=== PATIENT | female | born 1940 | race Caucasian/White ===

== ENCOUNTER 2018-11-23 20:12 | Emergency (ER) | payer OTHER, MEDICARE ==
--- NOTE | 2018-11-23 21:26 | RAD REPORT ---
EXAM DESCRIPTION: CT - CTHCSPWOC - 11/23/2018 9:16 pm CLINICAL HISTORY: Fall, head and neck injury COMPARISON: None. TECHNIQUE: Axial 5 mm thick images of the head were obtained. Axial 2 mm thick images of the cervic al spine were obtained with sagittal and coronal reconstruction images generated and reviewed. All CT scans are performed using dose optimization technique as appropriate and may include automated exposure control or mA/KV adjustment according to patient size. FINDINGS: No intracranial hemorrhage, mass, edema or acute intracranial finding. No suspicion for ac florence infarction. Moderate atrophy and chronic ischemic changes are present. Mastoid air cells and para nasal sinuses are clear. No globe or orbit abnormality seen. Cervical bodies are normal in height. Minimal subluxation of C3 on C4 noted. All disc levels except C 2-3 are narrowed. Prominent endplate spurs are seen at multiple levels. Uncovertebral joint hypertrop hy present at multiple levels. Significant foraminal encroachment on the right at C3-4 with moderate foraminal stenosis at C4-5 and on the left at C5-6. Left C6-7 foraminal encroachment as well. No frac ture or acute bony abnormality. Central canal detail is inherently limited. Prominent degenerative ch anges are present at the dens anterior arch C1 level. No paraspinal mass or hematoma. IMPRESSION: Atrophy and chronic ischemic change with no acute intracranial finding. Chronic ischemic changes can mask nonhemorrhagic acute infarction. MR brain followup can be obtained if there is ongoing concern for acute ischemia. Prominent cervical spine degenerative change without acute finding.
[2018-11-23 21:38] LABS: Potassium 4.1 mmol/L (3.5-5.1)
[2018-11-23 21:43] LABS: Absolute Lymphocytes (CBC) 0.7 K/uL (0.7-4.9); Absolute Monocytes 0.8 K/uL (0.1-1.3); Absolute Neutrophil 8.8 K/uL (1.8-8.0); Basophils % 0.4 % (0-1.3); Hematocrit 37.1 % (36.0-45.0); Lymphocytes % 6.5 % (15.3-44.8); Monocytes % 7.7 % (3.3-12.3); RBC Red Blood Cell Count 3.93 M/uL (3.86-4.86)
--- NOTE | 2018-11-23 22:10 | EDPHYS ---
Physician Documentation [facility] Name: Coreen De Jesus Age: 78 yrs Sex: Female : 1940 Arrival Date: 11/23/2018 Time: 20:20 Bed 18 Private MD: ED Physician Christopher Price HPI: 11/23 20:37 This 78 yrs old Female presents to ER via EMS with complaints of Fall. ps1 20:37 Patient was found down by staff at alf. Unknown LOC, unknown fall, patient has ps1 severe dementia and only attests to right arm pain. Not providing history. No other trauma identified. Pain rated as moderate with palpation.. Historical: - Allergies: 20:24 NKDA; cc3 - Home Meds: 20:24 citalopram 40 mg tab 1 tab once daily [Active]; hydrochlorothiazide 12.5 mg Oral cap 1 cc3 cap once daily [Active]; Namzaric 28-10 mg oral CSpX 1 cap once daily [Active]; risperidone 0.25 mg oral tab 1 tabs 3x per day [Active]; Arthritis Pain Relief (acetam) 650 mg oral TbER prn [Active]; tramadol 50 mg Oral tab 3x a day PRN [Active]; - PMHx: 20:24 Dementia; Alzheimers; cc3 20:24 Depression; Anxiety; osteoarthritis; cc3 - Immunization history:: Adult Immunizations unknown. - Social history:: Smoking status: unknown. - Ebola Screening: : No symptoms or risks identified at this time. ROS: 20:37 Unable to obtain ROS due to baseline dementia. ps1 Exam: 20:37 Constitutional: This is a well developed, well nourished patient who is awake, alert, ps1 and in no acute distress. Head/Face: Normocephalic, atraumatic. Chest/axilla: Normal chest wall appearance and motion. Nontender with no deformity. No lesions are appreciated. Cardiovascular: Regular rate and rhythm. No gallops, murmurs, or rubs. Normal PMI, no JVD. No pulse deficits. Respiratory: Lungs have equal breath sounds bilaterally, clear to auscultation and percussion. No rales, rhonchi or wheezes noted. No increased work of breathing, no retractions or nasal flaring. Abdomen/GI: Soft, non-tender, with normal bowel sounds. No distension or tympany. No guarding or rebound. No evidence of tenderness throughout. 20:37 Musculoskeletal/extremity: Extremities: grossly normal except: noted in the right arm: pain. 20:37 Neuro: Orientation: Not oriented to person, place, situation. Vital Signs: 20:24 BP 167 / 94; Pulse 86; Resp 20 S; Temp 98.6(O); Pulse Ox 90% on R/A; cc3 21:26 BP 159 / 82; Pulse 93; Resp 16 S; Pulse Ox 93% on 2 lpm NC; jd3 22:13 BP 159 / 82; Pulse 85; Resp 17 S; Pulse Ox 92% on 2 lpm NC; jd3 23:47 BP 159 / 82; Pulse 83; Resp 17 S; Pulse Ox 93% on 2 lpm NC; jd3 11/24 00:30 BP 138 / 75; Pulse 80; Resp 17 S; Pulse Ox 95% on 2 lpm NC; jd3 01:42 BP 126 / 73; Pulse 77; Resp 16 S; Pulse Ox 95% on 2 lpm NC; jd3 02:40 BP 115 / 73; Pulse 72; Resp 16 S; Pulse Ox 96% on 2 lpm NC; jd3 03:47 BP 130 / 72; Pulse 72; Resp 18 S; Pulse Ox 95% on 2 lpm NC; jd3 04:28 BP 127 / 87; Pulse 71; Resp 17 S; Pulse Ox 95% on 2 lpm NC; jd3 MDM: 11/23 21:04 Patient medically screened. ps1 22:43 Data reviewed: vital signs, nurses notes, lab test result(s), radiologic studies, and ps1 as a result, I will discharge patient. 11/23 20:51 Order name: Basic Metabolic Panel ps1 11/23 20:51 Order name: CBC with Diff ps1 11/23 20:51 Order name: Creatinine for Radiology ps1 11/23 20:51 Order name: Type And Screen ps1 11/23 21:38 Order name: Basic Metabolic Panel; Complete Time: 21:45 EDMS 11/23 21:39 Order name: Creatinine (Radiology Only); Complete Time: 21:45 EDMS 11/23 20:51 Order name: XRAY Chest (1 view) ps1 11/23 20:51 Order name: CT Head C Spine ps1 11/23 20:51 Order name: Labs collected and sent; Complete Time: 21:14 ps1 11/23 20:51 Order name: Humerus Right XRAY ps1 11/23 21:27 Order name: CT; Complete Time: 21:45 EDMS 11/23 21:49 Order name: CBC with Automated Diff; Complete Time: 22:05 EDMS 11/23 22:04 Order name: Type and Screen; Complete Time: 22:05 EDMS Administered Medications: No medications were administered Disposition: 22:43 Chart complete. ps1 Disposition: 11/23/18 22:09 Discharged to Home. Impression: Fall, Right arm pain. - Condition is Stable. - Discharge Instructions: Fall Prevention in the Home. - SBAR form, Medication Reconciliation Form, Thank You Letter, Antibiotic Education, Prescription Opioid Use form. - Follow up: Private Physician; When: As needed; Reason: Recheck today's complaints, Continuance of care, Re-evaluation by your physician. Follow up: Emergency Department; When: As needed; Reason: Worsening of condition. - Problem is new. - Symptoms have improved. Signatures: Dispatcher [employer] Pipo Downing RN RN jd3 Christopher Price MD MD ps1 Laine Freeman cc3 Corrections: (The following items were deleted from the chart) 11/24 05:10 11/23 22:09 11/23/2018 22:09 Discharged to Home. Impression: Fall; Right arm pain. jd3 Condition is Stable. Forms are Medication Reconciliation Form, Thank You Letter, Antibiotic Education, Prescription Opioid Use. Follow up: Private Physician; When: As needed; Reason: Recheck today's complaints, Continuance of care, Re-evaluation by your physician. Follow up: Emergency Department; When: As needed; Reason: Worsening of condition. Problem is new. Symptoms have improved. ps1
--- NOTE | 2018-11-23 22:10 | ER ---
Nurse's Notes [facility] Name: Coreen De Jesus Age: 78 yrs Sex: Female : 1940 Arrival Date: 11/23/2018 Time: 20:20 Bed 18 Private MD: Diagnosis: Fall;Right arm pain Presentation: 11/23 20:24 Presenting complaint: EMS states: Right arm pain sustained from fall. The patient is in cc3 [facility] and was found by the staff there at around 1900H tonight on the floor, not knowing when she had a fall, not knowing how did it happen or what the patient was doing prior to the fall and unknown if the patient had loss of consciousness or not, patient has history of dementia as endorsed. Transition of care: [facility]. Onset of symptoms was November 23, 2018. Risk Assessment: Do you want to hurt yourself or someone else? Patient reports no desire to harm self or others. Initial Sepsis Screen: Does the patient meet any 2 criteria? No. Patient's initial sepsis screen is negative. Does the patient have a suspected source of infection? No. Patient's initial sepsis screen is negative. Care prior to arrival: None. 20:24 Method Of Arrival: EMS: [facility] cc3 20:24 Acuity: IAN 3 cc3 Triage Assessment: 20:24 General: Appears in no apparent distress. uncomfortable, Behavior is calm, cooperative, cc3 appropriate for age. Pain: Complains of pain in right shoulder, right arm. EENT: No signs and/or symptoms were reported regarding the EENT system. Ear canal clear on bilateral Nares are clear. Neuro: Level of Consciousness is awake, alert, obeys commands, Oriented to none. Cardiovascular: Denies chest pain. Cardiovascular: Patient's skin is warm and dry. Respiratory: Airway is patent Respiratory effort is even, unlabored, Respiratory pattern is regular, symmetrical. GI: Abdomen is round non-distended. : No signs and/or symptoms were reported regarding the genitourinary system. Derm: Bruising that is dark purple, on left arm. Musculoskeletal: Circulation, motion, and sensation intact. Range of motion: limited in all extremities. Historical: - Allergies: 20:24 NKDA; cc3 - Home Meds: 20:24 citalopram 40 mg tab 1 tab once daily [Active]; hydrochlorothiazide 12.5 mg Oral cap 1 cc3 cap once daily [Active]; Namzaric 28-10 mg oral CSpX 1 cap once daily [Active]; risperidone 0.25 mg oral tab 1 tabs 3x per day [Active]; Arthritis Pain Relief (acetam) 650 mg oral TbER prn [Active]; tramadol 50 mg Oral tab 3x a day PRN [Active]; - PMHx: 20:24 Dementia; Alzheimers; cc3 20:24 Depression; Anxiety; osteoarthritis; cc3 - Immunization history:: Adult Immunizations unknown. - Social history:: Smoking status: unknown. - Ebola Screening: : No symptoms or risks identified at this time. Screenin:27 Abuse screen: Denies threats or abuse. Nutritional screening: No deficits noted. jd3 Tuberculosis screening: No symptoms or risk factors identified. Fall Risk Fall in past 12 months (25 points). Ambulatory Aid- Crutches/Cane/Walker (15 pts). Gait- Weak (10 pts.). Mental Status- Overestimates/Forgets Limitations (15 pts.). Total Pulido Fall Scale indicates High Risk Score (45 or more points). Fall prevention measures have been instituted. Side Rails Up X 2 Placed Close to Nursing Station Frequent Obs/Assessments Occuring. Assessment: 20:25 General: Appears uncomfortable, Behavior is calm, quiet. Pain: Complains of pain in jd3 right shoulder Quality of pain is described as aching, tender. Neuro: Level of Consciousness is awake, confused, Oriented to none. Cardiovascular: Capillary refill < 3 seconds Patient's skin is warm and dry. Respiratory: Airway is patent Respiratory effort is even, unlabored, Respiratory pattern is regular, symmetrical. GI: No signs and/or symptoms were reported involving the gastrointestinal system. : No signs and/or symptoms were reported regarding the genitourinary system. EENT: No signs and/or symptoms were reported regarding the EENT system. Derm: Skin is intact, Skin is dry, Skin is normal, Skin temperature is warm. Musculoskeletal: Range of motion: limited in right shoulder Reports pain in right shoulder. 21:28 Reassessment: Patient appears in no apparent distress at this time. No changes from jd3 previously documented assessment. Patient and/or family updated on plan of care and expected duration. Pain level reassessed. 22:12 Reassessment: Patient appears in no apparent distress at this time. No changes from jd3 previously documented assessment. Patient and/or family updated on plan of care and expected duration. Pain level reassessed. 22:26 Reassessment: Patient appears in no apparent distress at this time. Patient and/or jd3 family updated on plan of care and expected duration. Pain level reassessed. [facility] reported that facility will arrange transfer. 23:47 Reassessment: Patient appears in no apparent distress at this time. No changes from jd3 previously documented assessment. Patient and/or family updated on plan of care and expected duration. Pain level reassessed. awaiting transportation. 11/24 00:45 Reassessment: Patient appears in no apparent distress at this time. No changes from jd3 previously documented assessment. Patient and/or family updated on plan of care and expected duration. Pain level reassessed. 01:05 Reassessment: Patient appears in no apparent distress at this time. No changes from jd3 previously documented assessment. Patient and/or family updated on plan of care and expected duration. Pain level reassessed. [facility] called to insure transfer is on the way, no update, was told facility would call back. 01:43 Reassessment: Patient appears in no apparent distress at this time. No changes from jd3 previously documented assessment. Patient and/or family updated on plan of care and expected duration. Pain level reassessed. 02:40 Reassessment: Patient appears in no apparent distress at this time. No changes from jd3 previously documented assessment. Patient and/or family updated on plan of care and expected duration. Pain level reassessed. 03:40 Reassessment: Patient appears in no apparent distress at this time. No changes from jd3 previously documented assessment. Patient and/or family updated on plan of care and expected duration. Pain level reassessed. no response from [facility], charge nurse notified. 04:04 Reassessment: [facility] called for wheelchair van for pt transpiration. [facility] reported jd3 they will be available at 0630. 04:28 Reassessment: Patient appears in no apparent distress at this time. No changes from jd3 previously documented assessment. Patient and/or family updated on plan of care and expected duration. Pain level reassessed. 05:10 Reassessment: Patient appears in no apparent distress at this time. Patient and/or jd3 family updated on plan of care and expected duration. Pain level reassessed. pt son arrived to pick pt up. Vital Signs: 11/23 20:24 BP 167 / 94; Pulse 86; Resp 20 S; Temp 98.6(O); Pulse Ox 90% on R/A; cc3 21:26 BP 159 / 82; Pulse 93; Resp 16 S; Pulse Ox 93% on 2 lpm NC; jd3 22:13 BP 159 / 82; Pulse 85; Resp 17 S; Pulse Ox 92% on 2 lpm NC; jd3 23:47 BP 159 / 82; Pulse 83; Resp 17 S; Pulse Ox 93% on 2 lpm NC; jd3 11/24 00:30 BP 138 / 75; Pulse 80; Resp 17 S; Pulse Ox 95% on 2 lpm NC; jd3 01:42 BP 126 / 73; Pulse 77; Resp 16 S; Pulse Ox 95% on 2 lpm NC; jd3 02:40 BP 115 / 73; Pulse 72; Resp 16 S; Pulse Ox 96% on 2 lpm NC; jd3 03:47 BP 130 / 72; Pulse 72; Resp 18 S; Pulse Ox 95% on 2 lpm NC; jd3 04:28 BP 127 / 87; Pulse 71; Resp 17 S; Pulse Ox 95% on 2 lpm NC; jd3 ED Course: 11/23 20:20 Patient arrived in ED. ds1 20:24 Pipo Darby, RN is Primary Nurse. jd3 20:28 Patient has correct armband on for positive identification. Bed in low position. Call jd3 light in reach. Side rails up X2. 20:30 Triage completed. cc3 20:33 Christopher Price MD is Attending Physician. ps1 21:[address] via stretcher. kw1 21:10 Inserted saline lock: 20 gauge in left antecubital area, using aseptic technique. Blood jd3 collected. 21:14 CT completed. Patient moved back from NM. bq 21:15 Arm band placed on. jd3 11/24 05:07 No provider procedures requiring assistance completed. IV discontinued, intact, jd3 bleeding controlled, No redness/swelling at site. Pressure dressing applied. Administered Medications: No medications were administered Outcome: 11/23 22:09 Discharge ordered by . ps1 11/24 05:08 Discharged to [facility]. Report called to [facility] pt's son arrived for discharge jd3 of pt. Condition: stable Discharge instructions given to family, Instructed on discharge instructions, Demonstrated understanding of instructions. 05:10 Patient left the ED. jd3 Signatures: Claudette Warner, Elvi ds1 Pipo Darby, BETY RN jd3 Christopher Price MD MD ps1 Porsche Díaz kw1 Laine Freeman cc3 Corrections: (The following items were deleted from the chart) 11/23 22:12 21:28 Reassessment: Patient appears in no apparent distress at this time. No changes jd3 from previously documented assessment. Patient and/or family updated on plan of care and expected duration. Pain level reassessed. Patient is alert, oriented x 3, equal unlabored respirations, skin warm/dry/pink. jd3 11/24 01:43 01:05 Reassessment: Patient appears in no apparent distress at this time. No changes jd3 from previously documented assessment. Patient and/or family updated on plan of care and expected duration. Pain level reassessed. [facility] called to insure transfer is on the way, no update, was told facility would call back. jd3 43 01:43 Reassessment: Patient appears in no apparent distress at this time. No changes jd3 from previously documented assessment. Patient and/or family updated on plan of care and expected duration. Pain level reassessed[facility] way, no update, was told facility would call back. jd3
--- NOTE | 2018-11-24 08:04 | RAD REPORT ---
EXAM DESCRIPTION: RAD - Humerus Right - 11/23/2018 9:51 pm CLINICAL HISTORY: Right arm pain status post fall FINDINGS: An impacted fracture involves the right humeral neck. It has developed since 2016. An acu te fracture line is not clearly seen. It is uncertain if the fracture is acute or chronic. If clinica lly indicated further evaluation with CT could be obtained.
--- NOTE | 2018-11-24 08:04 | RAD REPORT ---
EXAM DESCRIPTION: E[place] Single View11/23/2018 9:51 pm CLINICAL HISTORY: Chest pain COMPARISON: 2016 FINDINGS: Area of subsegmental atelectasis is present within the left lung base. The remainder of the lungs appear clear of acute infiltrate. The heart is normal size
== END 2018-11-24 05:10 | disposition home or self-care (01) ==
LOC: ER 20:12
DX: M79.601 Pain in right arm (principal); G30.9 Alzheimer's disease, unspecified; F02.80 Dementia in other diseases classified elsewhere, unspecified severity, without behavioral disturbance, psychotic disturbance, mood disturbance, and anxiety; W19.XXXA Unspecified fall, initial encounter; Y93.9 Activity, unspecified; Y92.129 Unspecified place in nursing home as the place of occurrence of the external cause
CPT/HCPCS: 36415; 70450; 71045; 72125; 80048; 85025; 86850; 86900; 86901

== ENCOUNTER 2018-11-25 15:47 | Inpatient (IN) | payer OTHER, MEDICARE ==
[2018-11-25 16:27] LABS: Absolute Lymphocytes (CBC) 0.6 K/uL (0.7-4.9); Absolute Monocytes 0.7 K/uL (0.1-1.3); Absolute Neutrophil 7.6 K/uL (1.8-8.0); Basophils % 0.9 % (0-1.3); Eosinophils % 0.4 % (0-4.4); Hematocrit 34.6 % (36.0-45.0); Lymphocytes % 6.6 % (15.3-44.8); MPV 8.1 fL (7.6-11.3); Monocytes % 7.9 % (3.3-12.3); RBC Red Blood Cell Count 3.68 M/uL (3.86-4.86)
--- NOTE | 2018-11-25 17:01 | RAD REPORT ---
EXAM DESCRIPTION: US - UPPER EXTREMITY VENOUS UNILATE - 11/25/2018 4:54 pm CLINICAL HISTORY: Pain;Swelling Arm pain and swelling. COMPARISON: No comparisons FINDINGS: Right upper extremity venous system was interrogated with Doppler technique. Normal flow, compressibility and augmentation was noted. There is no DVT present. IMPRESSION: No evidence of right upper extremity deep venous thrombosis.
--- NOTE | 2018-11-25 17:02 | RAD REPORT ---
EXAM DESCRIPTION: US - Extremity Venous Uni Ltd - 11/25/2018 4:54 pm CLINICAL HISTORY: Pain;Swelling Leg swelling and edema. COMPARISON: UPPER EXTREMITY VENOUS UNILATE dated 11/25/2018 FINDINGS: Left lower extremity venous system was interrogated with Doppler technique. Normal flow, c ompressibility and augmentation was noted. There is no DVT present. IMPRESSION: No evidence of left lower extremity deep venous thrombosis.
--- NOTE | 2018-11-25 17:05 | RAD REPORT ---
EXAM DESCRIPTION: CT - Head Brain Wo Cont - 11/25/2018 4:57 pm CLINICAL HISTORY: MENTAL STATUS CHANGE Headache, drowsiness COMPARISON: Head C Spine Mpr Wo Con dated 11/23/2018; Brain Wo Cont dated 08/13/2016 TECHNIQUE: All CT scans are performed using dose optimization technique as appropriate and may inclu de automated exposure control or mA/KV adjustment according to patient size. FINDINGS: No intracranial hemorrhage, hydrocephalus or extra-axial fluid collection.Mild generalized brain atrophy is present with mild periventricular and deep white matter chronic microvascular ische keisha changes.No areas of brain edema or evidence of midline shift. The paranasal sinuses and mastoids are clear. The calvarium is intact. IMPRESSION: No acute intracranial abnormality.
--- NOTE | 2018-11-25 17:13 | RAD REPORT ---
EXAM DESCRIPTION: RAD - Chest Single View - 11/25/2018 5:06 pm CLINICAL HISTORY: AMS, recent fall, hypoxia Chest pain. COMPARISON: Chest Single View dated 11/23/2018; Chest Single View dated 02/11/2016; CHEST PA AND LAT 2 VIEW dated 05/25/2014; CHEST PA AND LAT 2 VIEW dated 05/14/2014 FINDINGS: Portable technique limits examination quality. Emphysematous changes are present throughout the lungs. Linear opacity in both lung bases, greater on the left, most compatible with atelectasis or developing pneumonia. The heart is normal in size. No displaced fractures. IMPRESSION: COPD. Mild left basilar lung opacity may represent atelectasis or pneumonia.
--- NOTE | 2018-11-25 17:26 | EDPHYS ---
Physician Documentation [facility] Name: Coreen De Jesus Age: 78 yrs Sex: Female : 1940 Arrival Date: 11/25/2018 Time: 15:53 Bed 24 Private MD: ED Physician Jad Leyva HPI: 11/25 17:06 This 78 yrs old Female presents to ER via EMS with complaints of AMS, rn lethargy. 17:06 The patient presents with confusion, decreased mental status. Onset: The rn symptoms/episode began/occurred at an unknown time. Associated signs and symptoms: Pertinent positives: confusion, Pertinent negatives: abdominal pain, chest pain, seizure. Current symptoms: In the emergency department the patient's symptoms are unchanged from the initial presentation. It is unknown whether or not the patient has had similar symptoms in the past. Seen here in ER yesterday for broken arm, noted to be altered today, unknown onset, not at baseline, and hypoxic. . Historical: - Allergies: 16:35 NKDA; ls4 - PMHx: 16:35 Alzheimers; Anxiety; Dementia; Depression; osteoarthritis; ls4 - PSHx: 16:35 Disc surgery; ls4 - Immunization history:: Adult Immunizations up to date. - Social history:: Smoking status: Patient/guardian denies using tobacco, never smoked. - Ebola Screening: : Patient negative for fever greater than or equal to 101.5 degrees Fahrenheit, and additional compatible Ebola Virus Disease symptoms Patient denies exposure to infectious person Patient denies travel to an Ebola-affected area in the 21 days before illness onset No symptoms or risks identified at this time. - Family history:: not pertinent. - Hospitalizations: : No recent hospitalization is reported. ROS: 17:06 Unable to obtain ROS due to altered mental status. rn Exam: 17:06 Constitutional: Altered woman, no acute distress Head/Face: Normocephalic, rn atraumatic. Eyes: Pupils equal round and reactive to light, extra-ocular motions intact. Lids and lashes normal. Conjunctiva and sclera are non-icteric and not injected. Cornea within normal limits. Periorbital areas with no swelling, redness, or edema. ENT: dry MM Cardiovascular: Regular rate and rhythm. No pulse deficits. Respiratory: + tachypnea, no retractions, + diminished bilateral bases Abdomen/GI: soft, non-tender MS/ Extremity: Pulses equal, no cyanosis. Neurovascular intact. Full, normal range of motion. + mild swelling LLE without sign of infection. + RUE in sling with painful ROM. Neuro: Awake and alert, slow to respond, appears confused but oriented to person and place, not time. Vital Signs: 15:53 BP 127 / 75; Pulse 81; Resp 23; Temp 98.8; Pulse Ox 92% on 3 lpm NC; rv 17:00 BP 122 / 70; Pulse 78; Resp 16; Temp 98.8; Pulse Ox 93% on 4 lpm NC; Pain 0/10; ls4 18:00 BP 101 / 60; Pulse 80; Resp 16; Temp 98.9(O); Pulse Ox 94% on 4 lpm NC; Pain 0/10; ls4 19:26 BP 98 / 62; Pulse 80; Resp 19; Temp 98.9(O); Pulse Ox 94% on 4 lpm NC; Pain 0/10; ls4 19:53 BP 110 / 66; Pulse 80; Resp 16; Pulse Ox 94% on 4 lpm NC; ls4 MDM: 15:56 Patient medically screened. rn 17:17 Differential Diagnosis: electrolyte abnormality, intracranial bleed, pneumonia, sepsis, rn UTI, volume depletion. Data reviewed: vital signs, nurses notes, lab test result(s), radiologic studies, plain films, and as a result, I will admit patient. Counseling: I had a detailed discussion with the patient and/or guardian regarding: the historical points, exam findings, and any diagnostic results supporting the discharge/admit diagnosis, lab results, radiology results, the need for further work-up and treatment in the hospital. Admission orders: after a detailed discussion of the patient's condition and case, the admit orders are written by me. ED course: Pt with left lung base infiltrate, likely pneumonia, especially given hypoxia, tachypnea, and AMS. S/P recent fall, DVT studies negative. . 17:21 ED course: Admitted to Dr. Brink for AMS, dehydration, pneumonia.. rn 11/25 16:04 Order name: CBC with Diff; Complete Time: 16:50 rn 11/25 16:04 Order name: Basic Metabolic Panel rn 11/25 16:04 Order name: Urine Culture rn 11/25 16:04 Order name: Urine Microscopic Only rn 11/25 16:04 Order name: Procalcitonin rn 11/25 16:04 Order name: Blood Culture Adult (2) rn 11/25 16:02 Order name: CT Head Brain wo Cont; Complete Time: 17:14 rn 11/25 16:02 Order name: XRAY Chest (1 view); Complete Time: 17:14 rn 11/25 16:02 Order name: Extremity Venous Uni Ltd US; Complete Time: 17:14 rn 11/25 16:09 Order name: UPPER EXTREMITY VENOUS UNILATE; Complete Time: 17:14 EDMS 11/25 16:33 Order name: Urine Dipstick--Ancillary (enter results) bd 11/25 16:04 Order name: IV Start; Complete Time: 16:54 rn 11/25 16:04 Order name: Urine Dipstick-Ancillary (obtain specimen); Complete Time: 16:50 rn 11/25 16:04 Order name: EKG; Complete Time: 16:04 rn 11/25 16:04 Order name: EKG - Nurse/Tech; Complete Time: 16:42 rn 11/25 16:32 Order name: Labs - recollect needed; Complete Time: 16:42 bd Administered Medications: 17:40 Drug: Rocephin - (cefTRIAXone) 1 grams Route: IVPB; Infused Over: 30 mins; Site: left ls4 hand; 18:00 Follow up: IV Status: Completed infusion; IV Intake: 10ml ls4 17:40 Drug: AZITHromycin 500 mg Route: IVPB; Infused Over: 1 hrs; Site: left hand; ls4 18:40 Follow up: IV Status: Completed infusion; IV Intake: 250ml ls4 18:40 Follow up: Response: No adverse reaction ls4 17:40 Drug: Xopenex 1.25 mg Route: Inhalation; ls4 18:10 Follow up: Response: No adverse reaction; Marked relief of symptoms ls4 Disposition: 11/25/18 17:25 Hospitalization ordered by Gokul Brink for Inpatient Admission. Preliminary diagnosis are Dehydration, Pneumonia, Altered mental status, unspecified. - Bed requested for Telemetry/MedSurg (Inpatient). - Status is Inpatient Admission. ls4 - Condition is Stable. - Problem is new. - Symptoms have improved. UTI on Admission? No Signatures: Dispatcher [employer] EDMS Navya Muñiz bd Romy Bucio, RN RN [facility] Cent[facility], Radha, RN RN Jad Leyva MD MD rn AlfredJacquie RN RN ls4 Corrections: (The following items were deleted from the chart) 16:09 16:03 Extremity Venous Uni Ltd+[email or web address].[email or web address] ordered. EDMN EDMN 18:24 17:25 Hospitalization Ordered by Gokul Brink DO for Inpatient Admission. Preliminary bd diagnosis is Dehydration; Pneumonia; Altered mental status, unspecified. Bed requested for Telemetry/MedSurg (Inpatient). Status is Inpatient Admission. Condition is Stable. Problem is new. Symptoms have improved. UTI on Admission? No. rn 19:14 18:24 11/25/2018 17:25 Hospitalization Ordered by Gokul Brink DO for Inpatient fc Admission. Preliminary diagnosis is Dehydration; Pneumonia; Altered mental status, unspecified. Bed requested for Telemetry/MedSurg (Inpatient). Status is Inpatient Admission. Condition is Stable. Problem is new. Symptoms have improved. UTI on Admission? No. bd 19:33 19:14 11/25/2018 17:25 Hospitalization Ordered by Gokul Brink DO for Inpatient mw Admission. Preliminary diagnosis is Dehydration; Pneumonia; Altered mental status, unspecified. Bed requested for Telemetry/MedSurg (Inpatient). Status is Inpatient Admission. Condition is Stable. Problem is new. Symptoms have improved. UTI on Admission? No. fc 19:35 19:33 11/25/2018 17:25 Hospitalization Ordered by Gokul Brink DO for Inpatient mw Admission. Preliminary diagnosis is Dehydration; Pneumonia; Altered mental status, unspecified. Bed requested for Telemetry/MedSurg (Inpatient). Status is Inpatient Admission. Condition is Stable. Problem is new. Symptoms have improved. UTI on Admission? No. mw 19:36 19:35 11/25/2018 17:25 Hospitalization Ordered by Gokul Brink DO for Inpatient mw Admission. Preliminary diagnosis is Dehydration; Pneumonia; Altered mental status, unspecified. Bed requested for Telemetry/MedSurg (Inpatient). Status is Inpatient Admission. Condition is Stable. Problem is new. Symptoms have improved. UTI on Admission? No. mw 21:43 19:36 11/25/2018 17:25 Hospitalization Ordered by Gokul Brink DO for Inpatient ls4 Admission. Preliminary diagnosis is Dehydration; Pneumonia; Altered mental status, unspecified. Bed requested for Telemetry/MedSurg (Inpatient). Status is Inpatient Admission. Condition is Stable. Problem is new. Symptoms have improved. UTI on Admission? No. mw
--- NOTE | 2018-11-25 17:26 | ER ---
Nurse's Notes [facility] Name: Coreen De Jesus Age: 78 yrs Sex: Female : 1940 Arrival Date: 11/25/2018 Time: 15:53 Bed 24 Private MD: Diagnosis: Dehydration;Pneumonia;Altered mental status, unspecified Presentation: 11/25 16:30 Presenting complaint: EMS states: PER EMS, ASSISTED LIVING STATES PT HAS NOT ls4 URINATED ALL DAY. HAS BEEN LETHARGIC AND WILL NOT EAT. Transition of care: patient was received from another setting of care ([facility]. Onset of symptoms was November 25, 2018. Risk Assessment: Do you want to hurt yourself or someone else? Patient reports no desire to harm self or others. Initial Sepsis Screen: Does the patient meet any 2 criteria? Altered Mental Status. Yes Does the patient have a suspected source of infection? No. Patient's initial sepsis screen is negative. Care prior to arrival: None. 16:30 Method Of Arrival: EMS: [facility] ls4 16:30 Acuity: IAN 3 ls4 Triage Assessment: 16:36 General: Appears unkempt, Behavior is flat. Pain: Complains of pain in right arm Unable ls4 to use pain scale. FLACC scale score is 5 out of 10. Neuro: Level of Consciousness is lethargic, Oriented to person, Weakness. Cardiovascular: Capillary refill < 3 seconds GI: Abdomen is non-distended, Bowel sounds present X 4 quads. Abd is soft and non tender X 4 quads. Derm: Rash noted that is red, AMIRAH AREA REDNESS. Musculoskeletal: Circulation, motion, and sensation intact. Capillary refill < 3 seconds, Range of motion: intact in all extremities. Historical: - Allergies: 16:35 NKDA; ls4 - PMHx: 16:35 Alzheimers; Anxiety; Dementia; Depression; osteoarthritis; ls4 - PSHx: 16:35 Disc surgery; ls4 - Immunization history:: Adult Immunizations up to date. - Social history:: Smoking status: Patient/guardian denies using tobacco, never smoked. - Ebola Screening: : Patient negative for fever greater than or equal to 101.5 degrees Fahrenheit, and additional compatible Ebola Virus Disease symptoms Patient denies exposure to infectious person Patient denies travel to an Ebola-affected area in the 21 days before illness onset No symptoms or risks identified at this time. - Family history:: not pertinent. - Hospitalizations: : No recent hospitalization is reported. Screenin:40 Abuse screen: Denies threats or abuse. Denies injuries from another. Nutritional ls4 screening: No deficits noted. Tuberculosis screening: No symptoms or risk factors identified. Fall Risk None identified. Assessment: 16:39 Reassessment:. General: Appears uncomfortable, unkempt, Behavior is cooperative, flat. ls4 Neuro: Level of Consciousness is lethargic, Oriented to person. Respiratory: Breath sounds are diminished bilaterally. 19:16 Reassessment: Patient appears in no apparent distress at this time. Patient is alert, ls4 oriented x 3, equal unlabored respirations, skin warm/dry/pink. Vital Signs: 15:53 BP 127 / 75; Pulse 81; Resp 23; Temp 98.8; Pulse Ox 92% on 3 lpm NC; rv 17:00 BP 122 / 70; Pulse 78; Resp 16; Temp 98.8; Pulse Ox 93% on 4 lpm NC; Pain 0/10; ls4 18:00 BP 101 / 60; Pulse 80; Resp 16; Temp 98.9(O); Pulse Ox 94% on 4 lpm NC; Pain 0/10; ls4 19:26 BP 98 / 62; Pulse 80; Resp 19; Temp 98.9(O); Pulse Ox 94% on 4 lpm NC; Pain 0/10; ls4 19:53 BP 110 / 66; Pulse 80; Resp 16; Pulse Ox 94% on 4 lpm NC; ls4 ED Course: 15:53 Patient arrived in ED. rv 15:56 Jad Leyva MD is Attending Physician. rn 16:02 EKG done, by log data technician. reviewed by Jad Leyva MD. dt2 16:15 Jacquie Simon, RN is Primary Nurse. ls4 16:15 Radiology exam delayed due to cath being placed. cy 16:33 Triage completed. ls4 16:33 Radiology exam delayed due to. ls3 16:35 Arm band placed on left wrist. EKG completed in triage. Results shown to MD. EKG done ls4 per protocol. Urine obtained. 16:40 No provider procedures requiring assistance completed. Inserted saline lock: 20 gauge ls4 in left hand, using aseptic technique. Blood collected. Oxygen administration via nasal cannula \T\ 5L/min Response to oxygen therapy: symptoms improved. 16:40 Patient has correct armband on for positive identification. Fall risk band placed. Bed ls4 in low position. Side rails up X 1. monitor and storage bin tender on. Pulse ox on. NIBP on. Warm blanket given. Verbal reassurance given. 16:53 Extremity Venous Uni Ltd US In Process Unspecified. EDMS 16:53 UPPER EXTREMITY VENOUS UNILATE In Process Unspecified. EDMS 16:55 CT completed. Patient tolerated procedure well. Patient moved to CT via stretcher. ct Patient moved back from CT. 17:05 CT Head Brain wo Cont In Process Unspecified. EDMS 17:06 XRAY Chest (1 view) In Process Unspecified. EDMS 17:23 Gokul Brink DO is Hospitalizing Provider. rn 21:44 Patient admitted, IV remains in place. intact. ls4 Administered Medications: 17:40 Drug: Rocephin - (cefTRIAXone) 1 grams Route: IVPB; Infused Over: 30 mins; Site: left ls4 hand; 18:00 Follow up: IV Status: Completed infusion; IV Intake: 10ml ls4 17:40 Drug: AZITHromycin 500 mg Route: IVPB; Infused Over: 1 hrs; Site: left hand; ls4 18:40 Follow up: IV Status: Completed infusion; IV Intake: 250ml ls4 18:40 Follow up: Response: No adverse reaction ls4 17:40 Drug: Xopenex 1.25 mg Route: Inhalation; ls4 18:10 Follow up: Response: No adverse reaction; Marked relief of symptoms ls4 Intake: 18:00 IV: 10ml; Total: 10ml. ls4 18:40 IV: 250ml; Total: 260ml. ls4 Outcome: 17:25 Decision to Hospitalize by Provider. rn 20:00 Admitted to Med/surg accompanied by tech, room 202, on monitor, with chart, Report ls4 called to MIAH ALBERT 21:43 Patient left the ED. ls4 21:44 Condition: stable ls4 Signatures: Dispatcher [employer] EDMS Jad Leyva MD MD rn Jordan, Nathan nj Yong, Chheannith cy Teague, Danielle dt2 Wale Harding RN RN rv Siler, Lynzie ls3 Jacquie Simon RN RN ls4 Corrections: (The following items were deleted from the chart) 18:52 18:10 IV Status: Completed infusion; IV Intake: 10ml ls4 ls4
[2018-11-25 17:27] LABS: Urine Bacteria 20-50 /HPF (<20); Urine Culture Reflex Order NOT NEEDED; Urine RBC <5 /HPF (NONE SEEN)
[2018-11-25] MEDS ORDERED: LEVALBUTEROL 1.25 MG/3 ML NEB ONE (17:39)
[2018-11-25] MEDS ORDERED: CEFTRIAXONE/SWI 1gm 1 GM/10 ML SYR ONE (17:40)
[2018-11-25] MEDS ORDERED: AZITHROMYCIN 500 MG/250 ML BAG ONE (17:40)
[2018-11-25 18:05] LABS: Potassium 4.6 mmol/L (3.5-5.1)
--- NOTE | 2018-11-25 18:10 | P.HP ---
Certification for Inpatient Patient admitted to: Inpatient With expected LOS: >2 Midnights Patient will require the following post-hospital care: Other (back to assisted living facility) Practitioner: I am a practitioner with admitting privileges, knowledge of patient current condition, hospital course, and medical plan of care. Services: Services provided to patient in accordance with Admission requirements found in Title 42 Section 412.3 of the Code of Federal Regulations Patient History Date of Service: 11/25/18 Primary Care Provider: Neurology-Dr. Smith Reason for admission: AMS History of Present Illness: 78-year-old female presented to emergency room with increasing altered mental status. The patient was seen 2 days ago for a fall. She had suffered an impacted right humerus fracture. The patient was seen and sent back to the assisted living facility with a sling. Over the last day she has been not been acting herself. Patient with history of Alzheimer's dementia, depression. The patient was sent over for further evaluation. In the ER patient was found to be slightly tachypneic and room-air saturations around 80%. Lab showed white count 9.1, chest x-ray showed left lower lobe pneumonia. The patient was given IV antibiotic therapy in the emergency room. The patient was admitted for further treatment. When I saw the patient the ER, she appeared stable. Patient did not appear in any respiratory failure. Allergies No Known Drug Allergies Allergy (Unverified 07/20/15 13:42) Unknown No Known Allergies Allergy (Uncoded 02/11/16 20:40) Unknown Home medications list reviewed: Yes - Past Medical/Surgical History Diabetic: No -: Alzheimer's dementia -: Depression -: Hypertension Past Surgical History: Unable to obtain Psychosocial/ Personal History: Assisted living facility - Family History Family History: Reviewed- Non-Contributory - Social History Smoking Status: Never smoker Alcohol use: No CD- Drugs: No Caffeine use: No Place of Residence: [facility] Review of Systems is unable to be obtained Physical Examination - Physical Exam General: Alert, Demented (Moderate to severe dementia), Confused HEENT: Atraumatic, Normocephalic, Mucous membr. moist/pink Neck: Supple Respiratory: Diminished (To the left base. Poor inspiration and expiration) Cardiovascular: Normal pulses, Regular rate/rhythm Gastrointestinal: Normal bowel sounds, Soft and benign, Non-distended, No tenderness, No masses, No rebound, No guarding Musculoskeletal: No tenderness, No warmth Integumentary: Other (Mild swelling to the right humerus.) Neurological: Normal speech, Normal strength at 5/5 x4 extr, Normal tone, Dementia (Moderate to severe) - Studies Laboratory Data (last 24 hrs) 11/25/18 16:02: WBC 9.1, Hgb 11.5 L, Hct 34.6 L, Plt Count 224 Assessment and Plan - Plan Impression: Toxic encephalopathy secondary to left lower lobe pneumonia with noted tachypnea and hypoxia Alzheimer's dementia Recent fall with a right humerus fracture Depression Hypertension Plan: Toxic encephalopathy secondary to left lower lobe pneumonia with noted tachypnea and hypoxia: Patient will be admitted. Patient has been started on Rocephin and Zithromax. Will provide medication for cough. Will maintain sats above 90%. Will recheck chest x-ray in the morning. Will monitor lab. Case discussed with 1 of her contact information. She has spoken to the son who has medical power of prosecuting attorney. Advanced directives address in detail. Patient is DNR. Alzheimer's dementia: Will continue with her medication but will need to verify home meds. Recent fall with a right humerus fracture: Will continue with sling. Will provide medication for pain. Will need to have physical therapy assess ambulation. Depression: Will continue with her medication of Celexa. Hypertension: Blood pressure stable this time. Will monitor closely. Discharge Plan: Other (Assisted living facility) Plan to discharge in: 72 Hours - Advance Directives Does patient have a Living Will: No Does patient have a Durable POA for Healthcare: No - Code Status/Comfort Care Code Status Assessed: Yes (Patient is DNR) Time Spent Managing Pts Care (In Minutes): 55
--- NOTE | 2018-11-25 19:37 | EKG ---
Test Date: 2018-11-25 Test Time: 15:53:08 Residence Manager: CORRIE MEASUREMENT RESULTS: Intervals: Rate: 79 IL: 154 QRSD: 82 QT: 366 QTc: 419 [place]: P: 33 IL: 154 QRS: -26 T: 26 INTERPRETIVE STATEMENTS: Normal sinus rhythm Voltage criteria for left ventricular hypertrophy Nonspecific T wave abnormality Abnormal ECG Compared to ECG 03/08/2008 07:48:55 T-wave abnormality now present Electronically Signed On 11-25-18 19:36:52 [employer]AF[employer]Y COMPANION by Matt Kaiser
[2018-11-25 20:03] LABS: Urine Blood NEGATIVE (NEG); Urine Glucose NEGATIVE (NEG); Urine Protein 1+ (NEG); Urine Specific Gravity 1.025 (1.005-1.030); Urine pH 5.5 (5.0-7.0)
[2018-11-25] MEDS ORDERED: ALBUTEROL 2.5 MG/3 ML NEB SOL NEB PRN (20:52)
[2018-11-25] MEDS ORDERED: RISPERIDONE 0.25 MG TABLET PO PRN (20:52)
[2018-11-25] MEDS ORDERED: IPRATROPIUM BROM 0.5MG/2.5ML NEB PRN (20:52)
[2018-11-25] MEDS ORDERED: ACETAMINOPHEN 500 MG TAB PO PRN (20:52)
[2018-11-25] MEDS ORDERED: ONDANSETRON 4 MG/2 ML VIAL IV PRN (20:52)
[2018-11-25] MEDS ORDERED: BENZONATATE 100 MG CAP PO PRN (20:52)
[2018-11-25] MEDS ORDERED: TRAMADOL HCL 50 MG TAB PO PRN (20:52)
[2018-11-25] MEDS: NA CHLORIDE 0.9% 1,000 ML IV SCH (22:06)
[2018-11-25 22:33] LABS: Thyroid Stimulating Hormone 2.4 uIU/mL (0.360-3.740)
[2018-11-26 06:17] LABS: Absolute Lymphocytes (CBC) 0.7 K/uL (0.7-4.9); Absolute Monocytes 0.7 K/uL (0.1-1.3); Absolute Neutrophil 6.1 K/uL (1.8-8.0); Basophils % 0.5 % (0-1.3); Eosinophils % 1.9 % (0-4.4); Lymphocytes % 9.5 % (15.3-44.8); MPV 7.8 fL (7.6-11.3); Monocytes % 8.6 % (3.3-12.3); RBC Red Blood Cell Count 3.37 M/uL (3.86-4.86)
[2018-11-26 06:43] LABS: Magnesium 2.3 mg/dL (1.8-2.4); Potassium 4.1 mmol/L (3.5-5.1)
--- NOTE | 2018-11-26 07:45 | RAD REPORT ---
EXAM DESCRIPTION: Eulalia Single View11/26/2018 6:39 am CLINICAL HISTORY: Shortness of breath COMPARISON: November 25, 2018 FINDINGS: Mild bibasilar atelectasis is unchanged. Upper lobes appear clear. The heart is normal siz e
[2018-11-26] MEDS: CITALOPRAM 10 MG TABLET PO SCH (08:17)
[2018-11-26] MEDS: CEFTRIAXONE/SWI 1gm 1 GM/10 ML SYR IV SCH (08:18)
[2018-11-26] MEDS: ENOXAPARIN 40 MG/0.4 ML SQ SCH (08:18)
[2018-11-26] MEDS ORDERED: HOME MED 1 EA UNK (Citalopram Hydrobromide [Citalopram Hbr] 40 MG) PO SCH (09:00)
[2018-11-26] MEDS ORDERED: CEFTRIAXONE 1 GM/NS 50 ML 1 GM/50 ML BAG IV SCH (09:00)
[2018-11-26] MEDS: AZITHROMYCIN IV 500 MG in NA CHLORIDE 0.9% 250 ML IVPB SCH (09:29)
--- NOTE | 2018-11-26 10:26 | P.PN ---
Subjective Date of Service: 11/26/18 Primary Care Provider: Neurology-Dr. Smith Chief Complaint: AMS Subjective: Demented, Other (Patient appears slightly improved.) Physical Examination - Vital Signs Temperature: 98.6 F Blood Pressure: 128/61 Pulse: 76 Respirations: 19 Pulse Ox (%): 94 - Physical Exam General: Alert, Demented (Moderate dementia) HEENT: Atraumatic Neck: Supple Respiratory: Crackles/rales (To the bases bilateral) Cardiovascular: Normal pulses, Regular rate/rhythm Gastrointestinal: Normal bowel sounds, Soft and benign, Non-distended, No tenderness, No masses, No rebound, No guarding Musculoskeletal: No erythema, No tenderness, No warmth Integumentary: No tenderness/swelling, No erythema, No warmth, No cyanosis Neurological: Dementia - Studies Laboratory Data (last 24 hrs) 11/25/18 17:19: Sodium 141, Potassium 4.6, BUN 41 H, Creatinine 1.60 H, Glucose 253 H 11/25/18 16:02: WBC 9.1, Hgb 11.5 L, Hct 34.6 L, Plt Count 224 Medications List Reviewed: Yes Assessment & Plan Discharge Plan: Other (Assisted living facility) Plan to discharge in: 48 Hours Physician Review Additional Text: Impression: Toxic encephalopathy secondary to left lower lobe pneumonia with noted tachypnea and hypoxia along with UTI Alzheimer's dementia with possible dysphagia Acute renal insufficiency likely underlying chronic kidney disease Recent fall with a right humerus fracture Depression Hypertension Anemia likely of chronic disease Plan: Toxic encephalopathy secondary to left lower lobe pneumonia with noted tachypnea and hypoxia along with UTI: Patient appears improved. Pro calcitonin negative. Urine culture pending. 1/2 blood cultures positive likely contaminant. Will continue with Rocephin and Zithromax. Will provide medication for pain. Encourage incentive spirometer. Will wean off oxygen. Will assess ambulation with physical therapy. Patient may require skilled placement before going back to assisted living facility due to recent fall and fracture. Case discussed with case management. Alzheimer's dementia with possible dysphagia: Will continue with her medication. Will have speech assess swallowing. Patient may need modified barium swallow to further evaluate. Acute renal insufficiency likely underlying chronic kidney disease: Will continue with IV fluids. Will check renal ultrasound to further evaluate. Lab shows improvement Recent fall with a right humerus fracture: Will continue with sling. Will provide medication for pain. Will need to have physical therapy assess ambulation. Recommend skilled placement facility placement before going back to assisted living facility Depression: Will continue with her medication. Hypertension: Blood pressure stable this time. Will monitor closely. Anemia likely chronic disease: Will evaluate iron and B12 studies. Time Spent Managing Pts Care (In Minutes): 55
--- NOTE | 2018-11-26 10:31 | RAD REPORT ---
EXAM DESCRIPTION: RAD - Barium Swallow Modified - 11/26/2018 10:01 am CLINICAL HISTORY: Dementia, dysphagia COMPARISON: None. TECHNIQUE: The patient was given liquid, semi-solid and solid forms of barium. Lateral view fluorosc opic imaging was performed in conjunction with speech pathology service. FINDINGS: Cineloop acquisitions: 23 Fluoro time: 5 minutes 31 seconds Laryngeal penetration was observed on thin liquid barium. Aspiration risk is considered. Residual con trast seen in the valleculae and pyriform sinuses. Patient had difficulty swallowing the barium table t. IMPRESSION: Modified barium swallow as detailed above and on separate speech pathology report.
--- NOTE | 2018-11-26 14:25 | RAD REPORT ---
EXAM DESCRIPTION: US - Renal Ultrasound-Complete - 11/26/2018 2:18 pm CLINICAL HISTORY: Renal insufficiency. COMPARISON: None. FINDINGS: The right kidney measures 8 cm with a normal echotexture. The left kidney measures 7 cm with a normal echotexture. Hydronephrosis is not seen. No gross abnormality of bladder noted IMPRESSION: No hydronephrosis
[2018-11-26 17:09] LABS: Ferritin 516.7 ng/mL (8-388)
[2018-11-26] MEDS: NA CHLORIDE 0.9% 1,000 ML IV SCH (17:24)
[2018-11-26] MEDS: DONEPEZIL HCL PO SCH (20:31)
[2018-11-26] MEDS: MEMANTINE HCL PO SCH (20:31)
[2018-11-27 06:14] LABS: Absolute Lymphocytes (CBC) 0.8 K/uL (0.7-4.9); Absolute Monocytes 0.6 K/uL (0.1-1.3); Absolute Neutrophil 5.1 K/uL (1.8-8.0); Basophils % 0.6 % (0-1.3); Eosinophils % 4.6 % (0-4.4); Hematocrit 28.7 % (36.0-45.0); Lymphocytes % 11.5 % (15.3-44.8); MPV 7.8 fL (7.6-11.3); Monocytes % 8.7 % (3.3-12.3); RBC Red Blood Cell Count 2.99 M/uL (3.86-4.86)
[2018-11-27 06:23] LABS: Magnesium 2.3 mg/dL (1.8-2.4); Potassium 3.9 mmol/L (3.5-5.1)
[2018-11-27] MEDS: NA CHLORIDE 0.9% 1,000 ML IV SCH (09:08)
[2018-11-27] MEDS: ENOXAPARIN 40 MG/0.4 ML SQ SCH (09:10)
[2018-11-27] MEDS: CEFTRIAXONE/SWI 1gm 1 GM/10 ML SYR IV SCH (09:10)
[2018-11-27] MEDS: AZITHROMYCIN IV 500 MG in NA CHLORIDE 0.9% 250 ML IVPB SCH (09:10)
[2018-11-27] MEDS: CITALOPRAM 10 MG TABLET PO SCH (09:11)
--- NOTE | 2018-11-27 12:49 | P.PN ---
Subjective Date of Service: 11/27/18 Primary Care Provider: Neurology-Dr. Smith Chief Complaint: AMS Subjective: Improving Physical Examination - Vital Signs Temperature: 97.8 F Blood Pressure: 127/67 Pulse: 69 Respirations: 20 Pulse Ox (%): 95 - Physical Exam General: Alert, In no apparent distress HEENT: Atraumatic Neck: Supple Respiratory: Clear to auscultation bilaterally, Normal air movement Cardiovascular: Normal pulses, Regular rate/rhythm Gastrointestinal: Normal bowel sounds, Soft and benign, Non-distended Integumentary: No erythema, No warmth, No cyanosis Neurological: Normal speech, Dementia - Studies Microbiology Data (last 24 hrs): 11/25/18 14:20 Catheterized Urine [place] Count - Final BETWEEN 10,000 & 100,000 CFU/ML 11/25/18 14:20 Catheterized Urine - Final MIXED [place]ATIANA. Medications List Reviewed: Yes Assessment & Plan Discharge Plan: Other (SNF) Plan to discharge in: 24 Hours Physician Review Additional Text: Impression: Toxic encephalopathy secondary to left lower lobe pneumonia with noted tachypnea and hypoxia along with UTI Alzheimer's dementia with possible dysphagia Acute renal insufficiency likely underlying chronic kidney disease Recent fall with a right humerus fracture Depression Hypertension Anemia likely of chronic disease with iron and B12 deficiency Plan: Toxic encephalopathy secondary to left lower lobe pneumonia with noted tachypnea and hypoxia along with UTI: Patient appears improved since yesterday. Will continue with antibiotic therapy. Blood and urine cultures pending. Encourage incentive spirometer. Will have physical therapy assess ambulation. Case discussed with friend who takes care patient. She will get in contact with son. Will arrange for meeting to discuss long-term options for patient. If her conditions improves with physical therapy will recommend skilled placement. If her condition does not improve will need to consider hospice. Alzheimer's dementia with possible dysphagia: Will continue with her medication. Speech evaluated patient. Will continue with recommendations Acute renal insufficiency likely underlying chronic kidney disease: Will continue with IV fluids. Renal ultrasound unremarkable. Lab improved. Recent fall with a right humerus fracture: Will continue with sling. Will have physical therapy assess ambulation. Continue as above. Depression: Will continue with her medication. Hypertension: Blood pressure stable this time. Will monitor closely. Anemia likely chronic disease with iron and B12 deficiency: Will continue with supplementation. Time Spent Managing Pts Care (In Minutes): 55
[2018-11-27] MEDS: NACHLORIDE 0.45% 1,000 ML IV SCH (13:02)
[2018-11-27] MEDS: DONEPEZIL HCL PO SCH (21:00)
[2018-11-27] MEDS: MEMANTINE HCL PO SCH (21:00)
[2018-11-28] MEDS: NACHLORIDE 0.45% 1,000 ML IV SCH (03:49)
[2018-11-28 06:48] LABS: Absolute Lymphocytes (CBC) 0.7 K/uL (0.7-4.9); Absolute Monocytes 0.7 K/uL (0.1-1.3); Absolute Neutrophil 5.3 K/uL (1.8-8.0); Basophils % 0.7 % (0-1.3); Eosinophils % 3.9 % (0-4.4); Hematocrit 30.6 % (36.0-45.0); Lymphocytes % 10.4 % (15.3-44.8); Monocytes % 10.3 % (3.3-12.3); RBC Red Blood Cell Count 3.27 M/uL (3.86-4.86)
[2018-11-28] MEDS: ENOXAPARIN 40 MG/0.4 ML SQ SCH (08:19)
[2018-11-28] MEDS: CITALOPRAM 10 MG TABLET PO SCH (08:19)
[2018-11-28] MEDS: AMOX/K CLAV 500 MG TAB PO SCH ×2 (08:20→21:39)
--- NOTE | 2018-11-28 08:49 | RAD REPORT ---
EXAM DESCRIPTION: RAD - Chest Single View - 11/28/2018 8:08 am CLINICAL HISTORY: follow up pneumonia Chest pain. COMPARISON: Chest Single View dated 11/26/2018; Chest Single View dated 11/25/2018; Chest Single View dated 11/23/2018; Chest Single View dated 02/11/2016; Humerus Right dated 11/23/2018 FINDINGS: Portable technique limits examination quality. Mild bilateral pulmonary opacities are present, greatest in the left lung base, appearing unchanged s katrin comparative study. The heart is normal in size. Tortuous thoracic aorta. Chronic impacted deform ity of the proximal right humerus is noted. IMPRESSION: Stable chest since 11/26/2018.
--- NOTE | 2018-11-28 09:38 | P.PN ---
Subjective Date of Service: 11/28/18 Primary Care Provider: Neurology-Dr. Smith Chief Complaint: AMS Subjective: Demented (Patient with moderate dementia. Patient did not work with physical therapy yesterday. Patient requiring max assist for movement and with oral intake.) Physical Examination - Vital Signs Temperature: 98.3 F Blood Pressure: 148/72 Pulse: 68 Respirations: 18 Pulse Ox (%): 95 - Physical Exam General: Alert, Demented (Moderate to severe) HEENT: Atraumatic Neck: Supple Respiratory: Diminished (Due to poor inspiration) Cardiovascular: Normal pulses, Regular rate/rhythm Gastrointestinal: Normal bowel sounds, Soft and benign, Non-distended, No tenderness, No masses, No rebound, No guarding Musculoskeletal: No tenderness, No warmth Integumentary: No warmth, No cyanosis, Other (Multiple ulcers noted by wound care.) Neurological: Normal speech, Other (Patient bed-bound), Dementia (Severe) - Studies Microbiology Data (last 24 hrs): 11/25/18 14:20 Catheterized Urine [place] Count - Final BETWEEN 10,000 & 100,000 CFU/ML 11/25/18 14:20 Catheterized Urine - Final MIXED [place]ATIANA. Medications List Reviewed: Yes Assessment & Plan Discharge Plan: [facility] Plan to discharge in: 24 Hours Physician Review Additional Text: Impression: Toxic encephalopathy secondary to left lower lobe pneumonia with noted tachypnea and hypoxia A advanced Alzheimer's dementia Acute renal insufficiency likely underlying chronic kidney disease Recent fall with a right humerus fracture Depression Hypertension Anemia likely of chronic disease with iron and B12 deficiency Multiple ulcers to left heel-stage I, assay Gram-stage I, right heel-unstageable Malnutrition due to chronic conditions Plan: Toxic encephalopathy secondary to left lower lobe pneumonia with noted tachypnea and hypoxia: Patient stable. Urine culture negative. Blood culture likely contaminant. X-ray shows stability. Spoke with son and friend yesterday along with social work professor. Son and friend have agreed to move patient to [facility] with [facility] hosp[facility]. Will make arrangements. Anticipate discharge once arrangements in place. Son and friend report that they had been looking into hospice. They want to keep her comfortable. Continue with comfort measures. Will start antibiotic therapy. Maintain sats above 90%. Will discuss with social work professor again today. Advanced Alzheimer's dementia: Patient with advanced Alzheimer's dementia. Will continue with plan of care including transfer to [facility]. Acute renal insufficiency likely underlying chronic kidney disease: Will discontinue IV fluids. Improved. Recent fall with a right humerus fracture: Will continue with sling. Discontinued physical therapy. Will continue with comfort measures only. Depression: Will continue with her medication. Hypertension: Blood pressure stable this time. Will monitor closely. Anemia likely chronic disease with iron and B12 deficiency: Will continue with supplementation. Multiple ulcers to left heel-stage I, assay Gram-stage I, right heel-unstageable : Continue as above. Malnutrition due to chronic conditions: Comfort measures only. Patient to enter hospice. Time Spent Managing Pts Care (In Minutes): 55
[2018-11-28] MEDS: DONEPEZIL HCL PO SCH (21:00)
[2018-11-28] MEDS: MEMANTINE HCL PO SCH (21:00)
[2018-11-28] MEDS: HYDRALAZINE HCL 20 MG/ML VIAL IV PRN (21:40)
[2018-11-29] MEDS: AMOX/K CLAV 500 MG TAB PO SCH (08:49)
[2018-11-29] MEDS: CITALOPRAM 10 MG TABLET PO SCH (08:49)
[2018-11-29] MEDS: ENOXAPARIN 40 MG/0.4 ML SQ SCH (08:50)
[2018-11-29] MEDS: HYDRALAZINE HCL 20 MG/ML VIAL IV PRN (08:52)
--- NOTE | 2018-11-29 09:36 | P.DS ---
Admission Date: 11/25/18 Discharge Date: 11/29/18 Primary Care Provider: Neurology-Dr. Smith Disposition: HOSPICE-MEDICAL FACILITY Discharge Condition: GOOD Reason for Admission: AMS Consultations: none Procedures: CT head: COMPARISON: Head C Spine Mpr Wo Con dated 11/23/2018; Brain Wo Cont dated 2015 TECHNIQUE: All CT scans are performed using dose optimization technique as appropriate and may include automated exposure control or mA/KV adjustment according to patient size. FINDINGS: No intracranial hemorrhage, hydrocephalus or extra-axial fluid collection.Mild generalized brain atrophy is present with mild periventricular and deep white matter chronic microvascular ischemic changes.No areas of brain edema or evidence of midline shift. The paranasal sinuses and mastoids are clear. The calvarium is intact. IMPRESSION: No acute intracranial abnormality. CXR: COMPARISON: Chest Single View dated 11/23/2018; Chest Single View dated 02/11/2016 ; CHEST PA AND LAT 2 VIEW dated 05/25/2014; CHEST PA AND LAT 2 VIEW dated 2013 FINDINGS: Portable technique limits examination quality. Emphysematous changes are present throughout the lungs. Linear opacity in both lung bases, greater on the left, most compatible with atelectasis or developing pneumonia. The heart is normal in size. No displaced fractures. IMPRESSION: COPD. Mild left basilar lung opacity may represent atelectasis or pneumonia. Renal US: COMPARISON: None. FINDINGS: The right kidney measures 8 cm with a normal echotexture. The left kidney measures 7 cm with a normal echotexture. Hydronephrosis is not seen. No gross abnormality of bladder noted IMPRESSION: No hydronephrosis Modified Barium Swallow: COMPARISON: None. TECHNIQUE: The patient was given liquid, semi-solid and solid forms of barium. Lateral view fluoroscopic imaging was performed in conjunction with speech pathology service. FINDINGS: Cineloop acquisitions: 23 Fluoro time: 5 minutes 31 seconds Laryngeal penetration was observed on thin liquid barium. Aspiration risk is considered. Residual contrast seen in the valleculae and pyriform sinuses. Patient had difficulty swallowing the barium tablet. IMPRESSION: Modified barium swallow as detailed above and on separate speech pathology report. Medical Problem List: Toxic encephalopathy secondary to left lower lobe pneumonia with noted tachypnea and hypoxia with bacteremia and blood culture 1/2 positive for Staph epidermidis Advanced Alzheimer's dementia Acute renal insufficiency secondary to dehydration Recent fall with right humerus fracture Depression Hypertension Anemia likely of chronic disease with iron and B12 deficiency Multiple ulcers to left heel-stage I, right heel-unstageable Malnutrition due to chronic condition complicated with Oral dysphagia Brief History of Present Illness: 78-year-old female presented to emergency room with increasing altered mental status. The patient was seen 2 days ago for a fall. She had suffered an impacted right humerus fracture. The patient was seen and sent back to the assisted living facility with a sling. Over the last day she has been not been acting herself. Patient with history of Alzheimer's dementia, depression. The patient was sent over for further evaluation. In the ER patient was found to be slightly tachypneic and room-air saturations around 80%. Lab showed white count 9.1, chest x-ray showed left lower lobe pneumonia. The patient was given IV antibiotic therapy in the emergency room. The patient was admitted for further treatment. When I saw the patient the ER, she appeared stable. Patient did not appear in any respiratory failure. Hospital Course: Patient presented with toxic encephalopathy secondary to left lower lobe pneumonia with noted tachypnea and hypoxia upon admission. Patient was treated during her stay. Blood culture 1/2 positive for Staph epidermidis. Antibiotics were adjusted. Patient now on Levaquin 500 mg daily. Patient will continue with Levaquin for 14 days. During her stay her condition did not improve due to advanced Alzheimer's dementia. Son and family have decided to initiate hospice. Patient is DNR. Patient to be transferred [facility]. Comfort care to continue. Further adjustment in medication can be done by hospice. Patient with advanced Alzheimer's dementia. Hospice had been discussed in the past. Patient may continue with her current medications. At discharge patient will be transferred to [facility] with hospice. Patient with acute renal insufficiency secondary to dehydration. Patient receive IV fluids with improvement. No need for lab follow up as the patient will enter hospice. Patient with recent fall with right humerus fracture. Patient may continue with sling. No surgical intervention required. Patient with depression. Patient may continue with her medication. Patient with hypertension. Hydrochlorothiazide discontinued due to renal insufficiency. Patient switched over to hydralazine. At discharge patient will continue with hydralazine 25 mg 1 pill twice daily. May hold if blood pressure less than 120 systolic. Recommend to maintain blood pressures less 150 /80. Further adjustment can be done by hospice. Patient with anemia of chronic disease with iron and B12 deficiency. Patient may continue with supplementation. Patient with multiple ulcers to the left heel-stage I, right heel-are unstageable. Continue with wound care. Patient with malnutrition due to chronic conditions. Patient also with moderate to severe oral dysphagia. Patient evaluated by speech with modifying barium swallow. Continue with mechanical soft diet, small bites, double swallows and liquids with cups. Patient to continue with comfort feeding as per hospice. Vital Signs/Physical Exam: Temp Pulse Resp BP Pulse Ox 97.9 F 76 21 H 172/81 H 93 11/29/18 08:00 11/29/18 08:00 11/29/18 08:00 11/29/18 08:00 11/29/18 08:00 General: Alert, Demented (Advanced dementia) HEENT: Atraumatic Neck: Supple Respiratory: Clear to auscultation bilaterally, Normal air movement Cardiovascular: Normal pulses, Regular rate/rhythm Gastrointestinal: Normal bowel sounds, Soft and benign, Non-distended, No masses , No rebound, No guarding Musculoskeletal: No tenderness, No warmth Neurological: Normal speech, Normal strength at 5/5 x4 extr, Normal tone, Dementia (Advanced dementia) Laboratory Data at Discharge: WBC 7.0 K/uL (4.3-10.9) 11/28/18 06:15 Hgb 10.3 g/dL (12.0-15.0) L 11/28/18 06:15 Hct 30.6 % (36.0-45.0) L 11/28/18 06:15 Plt Count 207 K/uL (152-406) 11/28/18 06:15 Sodium 141 mmol/L (136-145) 11/28/18 06:15 Potassium 4.0 mmol/L (3.5-5.1) 11/28/18 06:15 BUN 28 mg/dL (7-18) H 11/28/18 06:15 Creatinine 0.84 mg/dL (0.55-1.3) 11/28/18 06:15 Glucose 162 mg/dL (74-106) H 11/28/18 06:15 Magnesium 2.0 mg/dL (1.8-2.4) 11/28/18 06:15 Home Medications: Acetaminophen [Arthritis Pain Relief] 650 mg PO QID PRN 11/25/18 Citalopram Hydrobromide [Citalopram HBr] 40 mg PO DAILY 11/25/18 Memantine HCl/Donepezil HCl [Namzaric 28 mg-10 mg Capsule] 1 cap PO BEDTIME risperiDONE [Risperdal 0.25 MG TAB*] 0.25 mg PO TID 11/25/18 traMADol HCL [Ultram*] 50 mg PO TID PRN 11/25/18 Cyanocobalamin (Vitamin B-12) [Vitamin B-12] 1,000 mcg PO DAILY #90 tablet 11/29 Hydralazine [Apresoline*] 25 mg PO BID #60 tab 11/29/18 Multivit with Iron,Minerals [Spectravite Senior] 1 each PO DAILY #90 tablet levoFLOXacin [Levaquin*] 500 mg PO DAILY #14 tab 11/29/18 New Medications: Cyanocobalamin (Vitamin B-12) [Vitamin B-12] 1,000 mcg PO DAILY #90 tablet Hydralazine [Apresoline*] 25 mg PO BID #60 tab levoFLOXacin [Levaquin*] 500 mg PO DAILY #14 tab Multivit with Iron,Minerals [Spectravite Senior] 1 each PO DAILY #90 tablet Patient Discharge Instructions: 1. Patient be transferred to [facility]. 2. Patient presented with toxic encephalopathy secondary to left lower lobe pneumonia with noted tachypnea and hypoxia upon admission. Patient was treated during her stay. Blood culture 1/2 positive for Staph epidermidis. Antibiotics were adjusted. Patient now on Levaquin 500 mg daily. Patient will continue with Levaquin for 14 days. During her stay her condition did not improve due to advanced Alzheimer's dementia. Son and family have decided to initiate hospice. Patient is DNR. Patient to be transferred to [facility]. Comfort care to continue. Further adjustment in medication can be done by hospice. 3. Patient with advanced Alzheimer's dementia. Hospice had been discussed in the past. Patient may continue with her current medications. At discharge patient will be transferred to [facility] with hospice. 4. Patient with acute renal insufficiency secondary to dehydration. Patient receive IV fluids with improvement. No need for lab follow up as the patient will enter hospice. 5. Patient with recent fall with right humerus fracture. Patient may continue with sling. No surgical intervention required. 6. Patient with depression. Patient may continue with her medication. 7. Patient with hypertension. Hydrochlorothiazide discontinued due to renal insufficiency. Patient switched over to hydralazine. At discharge patient will continue with hydralazine 25 mg 1 pill twice daily. May hold if blood pressure less than 120 systolic. Recommend to maintain blood pressures less 150/80. Further adjustment can be done by hospice. 8. Patient with anemia of chronic disease with iron and B12 deficiency. Patient may continue with supplementation. 9. Patient with multiple ulcers to the left heel-stage I, right heel-are unstageable. Continue with wound care. 10. Patient with malnutrition due to chronic conditions. Patient also with moderate to severe oral dysphagia. Patient evaluated by speech with modifying barium swallow. Continue with mechanical soft diet, small bites, double swallows and liquids with cups. Patient to continue with comfort feeding as per hospice. Diet: Per speech recommendation Activity: Fall precautions Time spent managing pt's care (in minutes): 55
[2018-11-29] MEDS ORDERED: levoFLOXacin 500 MG TAB PO SCH (12:30)
[2018-11-29] MEDS ORDERED: HYDRALAZINE HCL 25 MG TABLET PO SCH (21:00)
== END 2018-11-29 12:35 | disposition hospice, inpatient (51) | DRG 193 ==
LOC: ER 15:47 → ERHOLD 17:31 → 2ND 19:42
PROVIDERS: ADMIT Family Medicine; ATTEND Family Medicine
DX: J18.9 Pneumonia, unspecified organism (principal); G92 Toxic encephalopathy; N39.0 Urinary tract infection, site not specified; R78.81 Bacteremia; E46 Unspecified protein-calorie malnutrition; G30.0 Alzheimer's disease with early onset; F02.80 Dementia in other diseases classified elsewhere, unspecified severity, without behavioral disturbance, psychotic disturbance, mood disturbance, and anxiety; F32.9 Major depressive disorder, single episode, unspecified; I10 Essential (primary) hypertension; R09.02 Hypoxemia; S42.301D Unspecified fracture of shaft of humerus, right arm, subsequent encounter for fracture with routine healing; W19.XXXD Unspecified fall, subsequent encounter; R13.10 Dysphagia, unspecified; D63.8 Anemia in other chronic diseases classified elsewhere; E53.8 Deficiency of other specified B group vitamins; E61.1 Iron deficiency; L89.621 Pressure ulcer of left heel, stage 1; L89.610 Pressure ulcer of right heel, unstageable; B95.7 Other staphylococcus as the cause of diseases classified elsewhere; E86.0 Dehydration; N28.9 Disorder of kidney and ureter, unspecified; Z66 Do not resuscitate; Z68.21 Body mass index [BMI] 21.0-21.9, adult
CPT/HCPCS: 36415; 70450; 71045; 72125; 74230; 76770; 80048; 81003; 81015; 82607; 82728; 83540; 83735; 84145; 84439; 84443; 84466; 85025; 86850; 86900; 86901; 87040; 87077; 87086; 87088; 87186; 87205; 87804; 92526; 92611; 93005; 93971; 96365; 96368; 97110; 97162; 99285; J0360; J0456; J0696; J1650; J7030

== ENCOUNTER 2018-12-21 01:05 | Inpatient (IN) | payer OTHER, MEDICARE ==
[2018-12-21 02:11] LABS: Absolute Lymphocytes (CBC) 0.8 K/uL (0.7-4.9); Absolute Monocytes 0.7 K/uL (0.1-1.3); Absolute Neutrophil 8.9 K/uL (1.8-8.0); Basophils % 0.2 % (0-1.3); Eosinophils % 0.7 % (0-4.4); Hematocrit 36.8 % (36.0-45.0); Lymphocytes % 7.6 % (15.3-44.8); Monocytes % 6.2 % (3.3-12.3); RBC Red Blood Cell Count 3.89 M/uL (3.86-4.86)
[2018-12-21 02:20] LABS: Potassium 4.1 mmol/L (3.5-5.1)
--- NOTE | 2018-12-21 03:13 | ER ---
Nurse's Notes [facility] Name: Coreen De Jesus Age: 78 yrs Sex: Female : 1940 Arrival Date: 12/21/2018 Time: 01:07 Bed 15 Private MD: Diagnosis: Other slipping, tripping and stumbling and falls;Left hip intertrochanteric fracture Presentation: 12/21 01:05 Presenting complaint: EMS states: we received call from [facility]. rr5 patient found leaning on the wall sitting on the floor around 2130. according to the staffs in [facility] they heard sounds like something fell done then they found her in that position. AOx1, Left leg shortening externally rotated. morphine 20mg per orem received at 2300 H. Transition of care: patient was received from another setting of care (home health care), [facility]. Onset of symptoms was December 20, 2018 at 21:30. Risk Assessment: Do you want to hurt yourself or someone else? Patient reports no desire to harm self or others. Initial Sepsis Screen: Does the patient meet any 2 criteria? No. Patient's initial sepsis screen is negative. Does the patient have a suspected source of infection? No. Patient's initial sepsis screen is negative. Note out of hospital DNR form attached to chart. Care prior to arrival: None. 01:05 Method Of Arrival: EMS: [facility] rr5 01:05 Acuity: IAN 3 rr5 01:26 Mechanism of Injury: Fall out of bed. Trauma event details: Injury occurred in the [address], Injury occurred: senior care Injury occurred: December 21, 2018 Injury occurred at: 00:00. Trauma Activation: Alert Physician: ED Physician; Name: dr. priest; Notified At: 01:05; Arrived At: 01:05 Physician: General Surgeon; Name: n/a; Notified At: 01:05; Arrived At: Physician: Radiology; Name: clarissa; Notified At: 01:05; Arrived At: 01:10 Physician: Respiratory; Name: n/a; Notified At: 01:05; Arrived At: Physician: Lab; Name: n/a; Notified At: 01:05; Arrived At: Historical: - Allergies: 01:05 NKDA; rr5 - Home Meds: 01:05 Risperdal 0.25 mg Oral tab [Active]; lorazepam 0.5 mg Oral tab [Active]; ProMod Protein rr5 Oral liqd [Active]; multivitamin oral tab [Active]; zinc sulfate 220 mg oral tab [Active]; senna oral oral [Active]; hydrocodone-acetaminophen 5-325 mg oral tab [Active]; levsin 0.125mg [Active]; acetaminophen 650 mg Rectal supp [Active]; bisacodyl 10 mg Rectal supp [Active]; promethazine 25 mg Oral tab [Active]; morphine 20 mg/5 mL (4 mg/mL) Oral soln [Active]; - PMHx: 01:05 Alzheimers; Anxiety; Dementia; Depression; osteoarthritis; rr5 - Immunization history:: Adult Immunizations unknown. - Social history:: Smoking status: unknown. - Immunization history: Last tetanus immunization: unknown. - Ebola Screening: : Unable to complete screening because patient is disoriented, . Screenin:25 Abuse screen: Denies threats or abuse. Nutritional screening: No deficits noted. jd3 Tuberculosis screening: No symptoms or risk factors identified. Fall Risk Fall in past 12 months (25 points). Mental Status- Overestimates/Forgets Limitations (15 pts.). Total Pulido Fall Scale indicates Low Risk Score (25-44 pts). Fall prevention measures have been instituted. Side Rails Up X 2 Placed close to Nursing Station Frequent Obs/Assesments occuring. Primary Survey: 01:21 NO uncontrolled hemorrhage observed. A: The patient needs verbal stimulation to jd3 respond. Airway: patent, No supplemental oxygen in use on arrival. Oral cavity: clear, Trachea midline. Breathing/Chest: Respiratory pattern: regular, Respiratory effort: spontaneous, unlabored, Breath sounds: clear, bilaterally. Chest inspection: symmetrical rise and fall of the chest. Circulation: Heart tones present. Skin color: pink, Skin temperature: warm. Disability Verbal Stimuli. Exposure/Environment: All clothing and personal items were removed. Forensic evidence collection is not deemed to be indicated at this time. Items placed in patient belonging bag. There is no evidence of uncontrolled external bleeding. Obvious injury(ies) are noted at this time: left leg os externally rotated and shortened A warming method has been applied: A warm blanket has been provided to the patient. 02:20 Reassessment Airway Airway Patent Breathing/Chest Respiratory pattern Regular rr5 Respiratory effort Spontaneous Unlabored Circulation Heart tones Present Disability Verbal stimuli. Secondary Survey: 01:24 HEENT: No deficits noted. Gastrointestinal: No deficits noted. : No signs and/or jd3 symptoms were reported regarding the genitourinary system. Musculoskeletal: Circulation, motion, and sensation intact. left leg is shortened and externally rotated. Reports pain in left hip. Assessment: 01:05 General: Appears in no apparent distress. comfortable, Behavior is calm, AOx1, dementia rr5 patient, disoriented. Pain: Unable to use pain scale. Patient is disoriented. Patient appears to be grimacing, withdrawn, when the left leg is moving. 01:05 Neuro: Level of Consciousness is confused, Oriented to person. Cardiovascular: rr5 Capillary refill < 3 seconds Patient's skin is warm and dry. Respiratory: Airway is patent Respiratory effort is even, unlabored, Respiratory pattern is regular, symmetrical. GI: No signs and/or symptoms were reported involving the gastrointestinal system. : No signs and/or symptoms were reported regarding the genitourinary system. EENT: No signs and/or symptoms were reported regarding the EENT system. Derm: Wound noted left elbow Wound is skin peeled Decubitus located on sacrum buttocks is stage I. Musculoskeletal: Capillary refill < 3 seconds, shortened left leg, externally rotated. Injury Description: fall. 02:30 Reassessment: Patient appears in no apparent distress at this time. awaiting for rr5 results. 03:10 Reassessment: Patient appears in no apparent distress at this time. No changes from rr5 previously documented assessment. for review. no complaints made. 04:00 Reassessment: Patient appears in no apparent distress at this time. No changes from rr5 previously documented assessment. patient is admitted. no complaints made. 05:15 Reassessment: Patient appears in no apparent distress at this time. No changes from rr5 previously documented assessment. awake on bed vitally stable. 06:10 Reassessment: Patient appears in no apparent distress at this time. No changes from rr5 previously documented assessment. incontinence pad changed positive urine. Vital Signs: 01:05 BP 128 / 74; Pulse 103; Resp 17; Temp 97.8; Pulse Ox 96% ; Weight 90.72 kg; Height 5 rr5 ft. 11 in. (180.34 cm); 02:00 BP 120 / 79; Pulse 106; Resp 17; Pulse Ox 95% ; rr5 03:00 BP 131 / 74; Pulse 104; Resp 18; Pulse Ox 98% ; rr5 03:30 BP 126 / 72; Pulse 108; Resp 17; Pulse Ox 95% on 2 lpm NC; rr5 04:00 BP 124 / 70; Pulse 102; Resp 19; Pulse Ox 96% on 2 lpm NC; rr5 05:00 BP 113 / 70; Pulse 103; Resp 17; Pulse Ox 99% on 2 lpm NC; rr5 06:00 BP 116 / 62; Pulse 100; Resp 15; Pulse Ox 98% on 2 lpm NC; rr5 01:05 Body Mass Index 27.89 (90.72 kg, 180.34 cm) rr5 01:05 Ht and wt estimation rr5 Damon Coma Score: 01:26 Eye Response: to voice(3). Verbal Response: confused(4). Motor Response: localizes jd3 pain(5). Total: 12. Trauma Score (Adult): 01:26 Eye Response: to voice(0); Verbal Response: confused(1); Motor Response: localizes jd3 pain(1); Systolic BP: > 89 mm Hg(4); Respiratory Rate: 10 to 29 per min(4); Roya Score: 12; Trauma Score: 10 ED Course: 01:06 Arm band placed on right wrist. rr5 01:07 Patient arrived in ED. ds1 01:07 Marcello Priest MD is Attending Physician. kdr 01:13 Papi Rodrigez RN is Primary Nurse. rr5 01:19 Triage completed. rr5 01:26 Patient has correct armband on for positive identification. Placed in gown. Bed in low jd3 position. Call light in reach. Side rails up X2. 01:33 Patient maintains SpO2 saturation greater than 95% on room air. Thermoregulation: warm jd3 blanket given to patient. 01:40 Inserted saline lock: 20 gauge in right antecubital area, using aseptic technique. rr5 Blood collected. 01:46 X-ray completed. Portable x-ray completed in exam room. Patient tolerated procedure tm4 well. 01:48 XRAY Pelvis In Process Unspecified. EDMS 01:49 XRAY Chest (1 view) In Process Unspecified. EDMS 02:[address] via stretcher. kw1 02:19 CT completed. Patient tolerated procedure well. Patient moved back from CT. kw1 02:39 CT Head C Spine In Process Unspecified. EDMS 03:10 Allen Sarabia MD is Hospitalizing Provider. kdr 03:31 Hip Left 2 View XRAY In Process Unspecified. EDMS 04:59 No provider procedures requiring assistance completed. Patient admitted, IV remains in rr5 place. intact, No redness/swelling at site. Administered Medications: No medications were administered Intake: 01:30 IV: 10ml (IV Fluid); Total: 10ml. rr5 01:30 saline rr5 03:30 wet soaked in urine rr5 06:10 incontinence pad soaked in urine rr5 Output: 03:30 Other: 1 (Diapers) ; Total: 0ml. rr5 06:10 Other: 1 (Pads) ; Total: 0ml. rr5 01:30 saline rr5 03:30 wet soaked in urine rr5 06:10 incontinence pad soaked in urine rr5 Outcome: 03:12 Decision to Hospitalize by Provider. kdr 04:59 Admitted to ER Hold. Please see [facility] for further documentation. rr5 04:59 Condition: stable 04:59 Instructed on the need for admit. 05:00 Patient's length of stay in the Emergency Department was greater than 2 hours. admitted rr5 on ER holdPatient's length of stay extended due to 08:05 Patient left the ED. jl7 Signatures: Dispatcher [employer] EDMA Marcello Priest MD MD [facility] Beckham tm4 Elvi Walker ds1 Robin Huitron RN RN jl7 Pipo Darby RN RN jd3 Porsche Díaz kw1 Papi Rodrigez RN RN rr5
--- NOTE | 2018-12-21 03:13 | EDPHYS ---
Physician Documentation [facility] Name: Coreen De Jesus Age: 78 yrs Sex: Female : 1940 Arrival Date: 12/21/2018 Time: 01:07 Bed 15 Private MD: ED Physician Marcello Tamez Historical: - Allergies: 12/21 01:05 NKDA; rr5 - Home Meds: 01:05 Risperdal 0.25 mg Oral tab [Active]; lorazepam 0.5 mg Oral tab [Active]; ProMod Protein rr5 Oral liqd [Active]; multivitamin oral tab [Active]; zinc sulfate 220 mg oral tab [Active]; senna oral oral [Active]; hydrocodone-acetaminophen 5-325 mg oral tab [Active]; levsin 0.125mg [Active]; acetaminophen 650 mg Rectal supp [Active]; bisacodyl 10 mg Rectal supp [Active]; promethazine 25 mg Oral tab [Active]; morphine 20 mg/5 mL (4 mg/mL) Oral soln [Active]; - PMHx: 01:05 Alzheimers; Anxiety; Dementia; Depression; osteoarthritis; rr5 - Immunization history:: Adult Immunizations unknown. - Social history:: Smoking status: unknown. - Immunization history: Last tetanus immunization: unknown. - Ebola Screening: : Unable to complete screening because patient is disoriented, . Vital Signs: 01:05 BP 128 / 74; Pulse 103; Resp 17; Temp 97.8; Pulse Ox 96% ; Weight 90.72 kg; Height 5 rr5 ft. 11 in. (180.34 cm); 02:00 BP 120 / 79; Pulse 106; Resp 17; Pulse Ox 95% ; rr5 03:00 BP 131 / 74; Pulse 104; Resp 18; Pulse Ox 98% ; rr5 03:30 BP 126 / 72; Pulse 108; Resp 17; Pulse Ox 95% on 2 lpm NC; rr5 04:00 BP 124 / 70; Pulse 102; Resp 19; Pulse Ox 96% on 2 lpm NC; rr5 05:00 BP 113 / 70; Pulse 103; Resp 17; Pulse Ox 99% on 2 lpm NC; rr5 06:00 BP 116 / 62; Pulse 100; Resp 15; Pulse Ox 98% on 2 lpm NC; rr5 01:05 Body Mass Index 27.89 (90.72 kg, 180.34 cm) rr5 01:05 Ht and wt estimation rr5 [place] Coma Score: 01:26 Eye Response: to voice(3). Verbal Response: confused(4). Motor Response: localizes jd3 pain(5). Total: 12. Trauma Score (Adult): 01:26 Eye Response: to voice(0); Verbal Response: confused(1); Motor Response: localizes jd3 pain(1); Systolic BP: > 89 mm Hg(4); Respiratory Rate: 10 to 29 per min(4); Roya Score: 12; Trauma Score: 10 MDM: 03:12 Patient medically screened. [facility] 12/21 01:21 Order name: Basic Metabolic Panel; Complete Time: 02:51 [facility] 12/21 01:21 Order name: CBC with Diff [facility] 12/21 01:21 Order name: XRAY Pelvis [facility] 12/21 01:21 Order name: Creatinine for Radiology; Complete Time: 02:51 [facility] 12/21 01:21 Order name: Type And Screen; Complete Time: 03:10 [facility] 12/21 02:16 Order name: Manual Differential [facility] 12/21 01:21 Order name: XRAY Chest (1 view) [facility] 12/21 01:21 Order name: CT Head C Spine [facility] 12/21 01:21 Order name: Labs collected and sent; Complete Time: 01:51 [facility] 12/21 02:53 Order name: Hip Left 2 View XRAY [facility] 12/21 04:13 Order name: Physical Therapy Consult [facility] 12/21 04:13 Order name: NPO [facility] 12/21 04:37 Order name: Echo with Doppler [facility] Administered Medications: No medications were administered Disposition: 12/21/18 03:12 Hospitalization ordered by Allen Sarabia for Inpatient Admission. Preliminary diagnosis are Other slipping, tripping and stumbling and falls, Left hip intertrochanteric fracture. - Bed requested for Telemetry/MedSurg (Inpatient). - Status is Inpatient Admission. jl7 - Condition is Fair. - Problem is new. - Symptoms are unchanged. UTI on Admission? No Signatures: Dispatcher [employer] EDOR Romy Bucio RN RN Marcello Tamez MD MD [facility] Robin Huitron RN RN jl7 Rodrigez, Papi, RN RN rr5 Corrections: (The following items were deleted from the chart) 04:09 03:12 Hospitalization Ordered by Allen Sarabia MD for Inpatient Admission. Preliminary mw diagnosis is Other slipping, tripping and stumbling and falls; Left hip intertrochanteric fracture. Bed requested for Telemetry/MedSurg (Inpatient). Status is Inpatient Admission. Condition is Fair. Problem is new. Symptoms are unchanged. UTI on Admission? No. kdr 05:22 04:09 12/21/2018 03:12 Hospitalization Ordered by Allen Sarabia MD for Inpatient mw Admission. Preliminary diagnosis is Other slipping, tripping and stumbling and falls; Left hip intertrochanteric fracture. Bed requested for [facility] ER HOLD. Status is Inpatient Admission. Condition is Fair. Problem is new. Symptoms are unchanged. UTI on Admission? No. mw 08:05 05:22 12/21/2018 03:12 Hospitalization Ordered by Allen Sarabia MD for Inpatient jl7 Admission. Preliminary diagnosis is Other slipping, tripping and stumbling and falls; Left hip intertrochanteric fracture. Bed requested for Telemetry/MedSurg (Inpatient). Status is Inpatient Admission. Condition is Fair. Problem is new. Symptoms are unchanged. UTI on Admission? No. mw
[2018-12-21 03:59] LABS: Blood Morphology Comment NOT SEEN (NOT SEEN); Platelet Estimate ADEQ
[2018-12-21] MEDS ORDERED: ACETAMINOPHEN 500 MG TAB PO PRN (04:06)
[2018-12-21] MEDS ORDERED: MAGNESIUM HYDROXIDE 8% 30 ML PO PRN (04:06)
[2018-12-21] MEDS ORDERED: ONDANSETRON 4 MG/2 ML VIAL IV PRN (04:06)
[2018-12-21] MEDS: NA CHLORIDE 0.9% 1,000 ML IV SCH ×3 (05:00→17:58)
[2018-12-21] MEDS ORDERED: NA CHLORIDE 0.9% 1,000 ML ONE (05:22)
[2018-12-21] MEDS: CEFAZOLIN 1GM (PREMIX IV) 1 GM/50 ML BAG IV SCH ×2 (06:00→12:00)
[2018-12-21] MEDS: CITALOPRAM 10 MG TABLET PO SCH (08:57)
[2018-12-21] MEDS: RISPERIDONE 0.25 MG TABLET PO SCH ×3 (08:57→20:16)
--- NOTE | 2018-12-21 09:43 | RAD REPORT ---
EXAM DESCRIPTION: RAD - Pelvis - 12/21/2018 1:49 am CLINICAL HISTORY: Left hip pain status post fall FINDINGS: Subcapital fracture involves the left femur with marked displacement of fracture fragments . No dislocation seen Mildly displaced fractures involve the right inferior and superior pubic rami. Mildly displaced fract ure of the medial right acetabulum suspected as well. Age is indeterminate but it probably is subacut e. This should be correlated clinically.
--- NOTE | 2018-12-21 09:43 | RAD REPORT ---
EXAM DESCRIPTION: RAD - Hip Left 2 View - 12/21/2018 3:31 am CLINICAL HISTORY: Left hip pain status post injury FINDINGS: Subcapital fracture involves the left femur with marked displacement of fracture fragments. No dislocation seen
--- NOTE | 2018-12-21 09:45 | RAD REPORT ---
EXAM DESCRIPTION: Eul[place] Single View12/21/2018 1:49 am CLINICAL HISTORY: Chest pain COMPARISON: November 2018 FINDINGS: The lungs appear clear of acute infiltrate. The heart is mildly enlarged IMPRESSION: No acute abnormalities displayed
[2018-12-21] MEDS: CEFAZOLIN/SWI 1gm 1 GM/10 ML SYR IV SCH ×3 (12:19→23:24)
[2018-12-21] MEDS: HYDROMORPHONE HCL 1 MG/ML INJ IV PRN (16:16)
[2018-12-21] MEDS: ENOXAPARIN 30 MG/0.3 ML SQ SCH ×2 (17:00→17:40)
--- NOTE | 2018-12-21 17:27 | P.HP ---
Certification for Inpatient Patient admitted to: Inpatient With expected LOS: >2 Midnights Patient will require the following post-hospital care: None Practitioner: I am a practitioner with admitting privileges, knowledge of patient current condition, hospital course, and medical plan of care. Services: Services provided to patient in accordance with Admission requirements found in Title 42 Section 412.3 of the Code of Federal Regulations Patient History Date of Service: 12/21/18 Reason for admission: Left hip intertrochanteric fracture History of Present Illness: patient is an 78-year-old female came to the hospital after falling at the detention. She suffered a left hip intratrochanteric fracture. She will need to be admitted to the hospital for further evaluation. Patient was found sitting on the floor next to a wall around 2130. short time before that the detention staff at [facility] that they heard a large sound like someone had fell and found her in that position. Her left leg was short and rotated. Patient was admitted to the hospital for further evaluation. Allergies No Known Allergies Allergy (Verified 11/25/18 21:27) Home Medications: Acetaminophen [Arthritis Pain Relief] 650 mg PO QID PRN 11/25/18 Citalopram Hydrobromide [Citalopram HBr] 40 mg PO DAILY 11/25/18 Memantine HCl/Donepezil HCl [Namzaric 28 mg-10 mg Capsule] 1 cap PO BEDTIME risperiDONE [Risperdal 0.25 MG TAB*] 0.25 mg PO TID 11/25/18 traMADol HCL [Ultram*] 50 mg PO TID PRN 11/25/18 Cyanocobalamin (Vitamin B-12) [Vitamin B-12] 1,000 mcg PO DAILY #90 tablet 11/29 Hydralazine [Apresoline*] 25 mg PO BID #60 tab 11/29/18 Multivit with Iron,Minerals [Spectravite Senior] 1 each PO DAILY #90 tablet levoFLOXacin [Levaquin*] 500 mg PO DAILY #14 tab 11/29/18 - Past Medical/Surgical History Diabetic: No -: Alzheimer's dementia -: Depression -: Hypertension Psychosocial/ Personal History: Assisted living facility - Social History Smoking Status: Unknown if ever smoked Alcohol use: No CD- Drugs: No Caffeine use: No Place of Residence: [facility] Review of Systems 10-point ROS is otherwise unremarkable Physical Examination - Vital Signs Temperature: 97.0 F Blood Pressure: 112/58 Pulse: 89 Respirations: 18 Pulse Ox (%): 96 - Physical Exam General: Alert, In no apparent distress, Oriented x1, Confused HEENT: Atraumatic, PERRLA, Mucous membr. moist/pink, EOMI, Sclerae nonicteric Neck: Supple, 2+ carotid pulse no bruit, No LAD, Without JVD or thyroid abnormality Respiratory: Clear to auscultation bilaterally, Normal air movement Cardiovascular: Regular rate/rhythm, Normal S1 S2 Gastrointestinal: Normal bowel sounds, Soft and benign, Non-distended, No tenderness Musculoskeletal: No clubbing, No swelling, No tenderness Integumentary: No rashes Neurological: Normal gait, Normal speech, Normal strength at 5/5 x4 extr, Normal tone, Sensation intact, Cranial nerves 3-12 intact, Normal affect Lymphatics: No axilla or inguinal lymphadenopathy - Studies Laboratory Data (last 24 hrs) 12/21/18 01:40: Creatinine 0.91 12/21/18 01:40: WBC 10.5, Hgb 12.1, Hct 36.8, Plt Count 253 12/21/18 01:40: Sodium 144, Potassium 4.1, BUN 25 H, Creatinine 0.92, Glucose 165 H Assessment & Plan - Problems (Diagnosis) (1) Intertrochanteric fracture of left hip Current Visit: Yes Status: Acute (2) Alzheimer's dementia Onset Date: 11/26/18 Current Visit: No Status: Acute (3) Depression Onset Date: 11/26/18 Current Visit: No Status: Acute (4) Hypertension Onset Date: 11/26/18 Current Visit: No Status: Acute - Plan Plan: 1. Gentle hydration 2. Orthopedic consultation 3. Patient will need senior care facility placement afterwards 4. Pain control 5. Monitor labs 6. Patient is low risk for any cardiopulmonary complications. The benefits of the surgery outweigh the risks. Discharge Plan: [facility] Plan to discharge in: Greater than 2 days - Advance Directives Does patient have a Living Will: Yes Does patient have a Durable POA for Healthcare: Yes - Code Status/Comfort Care Code Status Assessed: Yes Code Status: Full Code Critical Care: No Time Spent Managing PTS Care (In Minutes): 55
[2018-12-22] MEDS: HYDROMORPHONE HCL 1 MG/ML INJ IV PRN (03:22)
[2018-12-22] MEDS: CEFAZOLIN/SWI 1gm 1 GM/10 ML SYR IV SCH (05:05)
[2018-12-22] MEDS: NA CHLORIDE 0.9% 1,000 ML IV SCH ×2 (05:08→07:40)
[2018-12-22] MEDS: CITALOPRAM 10 MG TABLET PO SCH (08:21)
[2018-12-22] MEDS: ENOXAPARIN 30 MG/0.3 ML SQ SCH (08:21)
[2018-12-22] MEDS: RISPERIDONE 0.25 MG TABLET PO SCH ×2 (08:25→13:37)
--- NOTE | 2018-12-22 10:29 | P.DS ---
Admission Date: 12/21/18 Discharge Date: 12/22/18 Primary Care Provider: BEATRIS patient Disposition: TRANSFER TO ALF Comment: With Hospice, No surgical intervention as per family Discharge Condition: GOOD Reason for Admission: Left hip intertrochanteric fracture Consultations: none Procedures: CXR: COMPARISON: November 2018 FINDINGS: The lungs appear clear of acute infiltrate. The heart is mildly enlarged IMPRESSION: No acute abnormalities displayed Hip Xray: CLINICAL HISTORY: Left hip pain status post injury FINDINGS: Subcapital fracture involves the left femur with marked displacement of fracture fragments. No dislocation seen Pelvic Xray: CLINICAL HISTORY: Left hip pain status post fall FINDINGS: Subcapital fracture involves the left femur with marked displacement of fracture fragments. No dislocation seen Mildly displaced fractures involve the right inferior and superior pubic rami. Mildly displaced fracture of the medial right acetabulum suspected as well. Age is indeterminate but it probably is subacute. This should be correlated clinically. Medical Problem List: Fall leading to left subcapital fracture of the femur, right inferior/superior pubic rami fracture, and fracture of the medial right acetabulum Alzheimer's dementia Hypertension Depression Brief History of Present Illness: 78-year-old female with history of Alzheimer's dementia. Patient suffered a fall at the half-way. She was sent to the ER for further evaluation. Hospital Course: Patient suffered a fall. She was found to have left subcapital fracture of the femur, right inferior/superior pubic rami fracture, and fracture of the medial right acetabulum. Patient currently with hospice and DNR. Hospitalist discussed case further with family about intervention. Family does not want any surgical intervention as the patient remains on hospice and is do not resuscitate. Family desires to continue with hospice at the half-way. Patient will return to the half-way with hospice. She will continue with comfort feeding and medication. Hospice to provide medication for pain. Fall precautions in place. Patient may continue with pain medication including tramadol 50 mg 3 times a day as needed for pain or Tylenol 3 times a day as needed for pain. Patient with Alzheimer's dementia. Patient may continue with her medication- Namzaric 28/10 mg 1 pill at bedtime and Risperdal 0.25 mg 3 times a day. further adjustment can be done by house. Patient with hypertension. Patient may continue with her medication- hydralazine 25 mg 1 pill twice daily. Further adjustment can be done by hospice. Patient with depression. Patient may continue with Celexa 40 mg daily Vital Signs/Physical Exam: Temp Pulse Resp BP Pulse Ox 98.5 F 91 H 18 124/59 L 92 12/22/18 08:00 12/22/18 08:00 12/22/18 08:00 12/22/18 08:00 12/22/18 08:00 General: Alert, Demented HEENT: Atraumatic Neck: Supple Respiratory: Clear to auscultation bilaterally, Normal air movement Cardiovascular: Normal pulses, Regular rate/rhythm Gastrointestinal: Normal bowel sounds, Soft and benign, Non-distended Musculoskeletal: No erythema, No tenderness, No warmth Integumentary: No erythema, No warmth, No cyanosis Neurological: Normal speech, Normal strength at 5/5 x4 extr, Normal tone, Dementia Laboratory Data at Discharge: WBC 10.5 K/uL (4.3-10.9) 12/21/18 01:40 Hgb 12.1 g/dL (12.0-15.0) 12/21/18 01:40 Hct 36.8 % (36.0-45.0) 12/21/18 01:40 Plt Count 253 K/uL (152-406) 12/21/18 01:40 Sodium 144 mmol/L (136-145) 12/21/18 01:40 Potassium 4.1 mmol/L (3.5-5.1) 12/21/18 01:40 BUN 25 mg/dL (7-18) H 12/21/18 01:40 Creatinine 0.91 mg/dL (0.55-1.3) 12/21/18 01:40 Glucose 165 mg/dL (74-106) H 12/21/18 01:40 Home Medications: Acetaminophen [Arthritis Pain Relief] 650 mg PO QID PRN 11/25/18 Citalopram Hydrobromide [Citalopram HBr] 40 mg PO DAILY 11/25/18 Memantine HCl/Donepezil HCl [Namzaric 28 mg-10 mg Capsule] 1 cap PO BEDTIME risperiDONE [Risperdal 0.25 MG TAB*] 0.25 mg PO TID 11/25/18 traMADol HCL [Ultram*] 50 mg PO TID PRN 01/22/19 Cyanocobalamin (Vitamin B-12) [Vitamin B-12] 1,000 mcg PO DAILY #90 tablet 11/29 Hydralazine [Apresoline*] 25 mg PO BID #60 tab 11/29/18 Multivit with Iron,Minerals [Spectravite Senior] 1 each PO DAILY #90 tablet Patient Discharge Instructions: 1. Patient to return to half-way with hospice. 2. Patient suffered a fall. She was found to have left subcapital fracture of the femur, right inferior/superior pubic rami fracture, and fracture of the medial right acetabulum. Patient currently with hospice and DNR. Hospitalist discussed case further with family about intervention. Family does not want any surgical intervention as the patient remains on hospice and is do not resuscitate. Family desires to continue with hospice at the half-way. Patient will return to the half-way with hospice. She will continue with comfort feeding and medication. Hospice to provide medication for pain. Fall precautions in place. Patient may continue with pain medication including tramadol 50 mg 3 times a day as needed for pain or Tylenol 3 times a day as needed for pain. 3. Patient with Alzheimer's dementia. Patient may continue with her medication-Namzaric 28/10 mg 1 pill at bedtime and Risperdal 0.25 mg 3 times a day. further adjustment can be done by house. 4. Patient with hypertension. Patient may continue with her medication -hydralazine 25 mg 1 pill twice daily. Further adjustment can be done by hospice. 5. Patient with depression. Patient may continue with Celexa 40 mg daily Diet: Comfort feeding Activity: Fall precautions Time spent managing pt's care (in minutes): 55
--- NOTE | 2018-12-22 21:25 | RAD REPORT ---
EXAM DESCRIPTION: CT - Head C Spine Mpr Wo Con - 12/21/2018 3:04 am CLINICAL HISTORY: The patient is 78 years olf and is female; fall COMPARISON: No relevant prior studies available.. FINDINGS: Brain: There is diffuse cerebral atrophy present, consistent with the patient's age. There is patchy hypo attenuation of the deep white matter which is nonspecific, but most likely owing to chronic small vessel ischemic change in a patient of this age group. No intracranial hemorrhage, mass effect, or midline shift seen. There are no extra-axial fluid collections. Ventricles: There is diffuse prominence of the ventricles, which is likely related to central atrophy . Skull: No acute fracture. Sinuses: Unremarkable as visualized. No acute sinusitis. Mastoid air cells: Unremarkable as visualized. No mastoid effusion. Vertebrae: The vertebral boy heights and alignment are maintained. No acute fracture. Discs/spinal canal/neural foramina: There is multi-level intervertebral disc height loss. There are d isc Osteophyte complexes at several levels, with associated mild spinal canal narrowing. The is also face t hypertrophy and uncovertebral joint osteophyosis, with associated multi-level neural foraminal narr owing. Soft tissues: The soft tissues are normal. Pleural spaces: The lung apices are clear. Bilateral calcified pleural plaques are noted. IMPRESSION: 1. NO acute intracranial findings. 2. Spondylosis of the cervical spine without acute findings. Electronically signed by Mayte Pond MD 12/21/2018 2:49 AM [facility] AP[employer]ENTICE Due to temporary technical issues with the PACS/Fluency reporting system, reports are being signed by the in house radiologist as a courtesy to ensure prompt reporting. The interpreting radiologist is f ully responsible for the content of the report.
== END 2018-12-22 15:06 | disposition hospice, inpatient (51) | DRG 965 ==
LOC: ER 01:05 → ERHOLD 04:36 → 2ND 07:43
PROVIDERS: ADMIT Hospitalist; ATTEND Family Medicine
DX: S72.142A Displaced intertrochanteric fracture of left femur, initial encounter for closed fracture (principal); S32.591A Other specified fracture of right pubis, initial encounter for closed fracture; S32.491A Other specified fracture of right acetabulum, initial encounter for closed fracture; Z51.5 Encounter for palliative care; Z66 Do not resuscitate; W01.0XXA Fall on same level from slipping, tripping and stumbling without subsequent striking against object, initial encounter; Y93.01 Activity, walking, marching and hiking; Y92.129 Unspecified place in nursing home as the place of occurrence of the external cause; G30.9 Alzheimer's disease, unspecified; F02.80 Dementia in other diseases classified elsewhere, unspecified severity, without behavioral disturbance, psychotic disturbance, mood disturbance, and anxiety; F32.9 Major depressive disorder, single episode, unspecified; I10 Essential (primary) hypertension
CPT/HCPCS: 36415; 70450; 71045; 72125; 72170; 80048; 85025; 86850; 86900; 86901; 99285; J0690; J1170; J1650; J7030